=== PATIENT | female | born 1960 | race Caucasian/White ===

== ENCOUNTER 2018-12-16 14:25 | Inpatient (IN) | payer MEDICARE ==
[~2018-12-16] VITALS: Ht 157.5 cm; Wt 63.9 kg
[~2018-12-16 14:25] MED LIST: /CELE20CA; BISO2.5T PO; CALC12502; CALTTAB5 PO; CLIN150C14 PO; IBUP600T OR; LEVO100T7; LYRI75CA; PERC5TAB8 OR; PREG50CA; PROC10TA4 PO; SM I100T OR; SYNT100T PO; VITAMIN D; ZANA2CAP; ZANA4CAP; ZOFR8TAB24 PO
[2018-12-16] MEDS ORDERED: POTA1TAB23 PO (14:34)
[2018-12-16] MEDS ORDERED: NS 1,000 ML IV ONE ×2 (15:00→15:15)
[2018-12-16] MEDS ORDERED: ONDANSETRON 4MG/2ML VIAL (J2405) IV ONE (15:15)
[2018-12-16 15:35] LABS: EOS % 1.9 % (0.0-3.0); HEMOGLOBIN 8.4 g/dl (12.0-15.5); LYMPH # 0.4 10^3/uL (1.5-4.5); LYMPH % 36.5 % (24.0-44.0); MEAN CORPUSCULAR HEMOGLOBIN 31.3 pg (27.0-33.0); MEAN CORPUSCULAR HGB CONC 33.6 g/dl (32.0-36.5); MEAN CORPUSCULAR VOLUME 93.3 fl (80.0-96.0); MONO # 0.4 10^3/uL (0.0-0.8); MONO % 34.6 % (0.0-5.0); NEUTROPHILS % 24.1 % (36.0-66.0); PLATELET COUNT, AUTOMATED 123 10^3/uL (150-450); RED BLOOD COUNT 2.68 10^6/uL (4.00-5.40)
[2018-12-16 15:37] LABS: NEUTROPHILS # 0.3 10^3/uL (1.8-7.7)
[2018-12-16 16:06] LABS: ALBUMIN 3.9 GM/DL (3.2-5.2); ALT/SGPT 21 U/L (12-78); BILIRUBIN,DIRECT 0.1 MG/DL (0.0-0.2); BILIRUBIN,TOTAL 0.5 MG/DL (0.2-1.0); BLOOD UREA NITROGEN 11 MG/DL (7-18); CARBON DIOXIDE LEVEL 27 MEQ/L (21-32); CHLORIDE LEVEL 104 MEQ/L (98-107); CREATININE FOR GFR 0.78 MG/DL (0.55-1.30); GLOMERULAR FILTRATION RATE > 60.0 (>45); GLUCOSE, FASTING 90 MG/DL (70-100); LIPASE 48 U/L (73-393); POTASSIUM SERUM 3.7 MEQ/L (3.5-5.1); SODIUM LEVEL 138 MEQ/L (136-145); TOTAL PROTEIN 6.6 GM/DL (6.4-8.2)
--- NOTE | 2018-12-16 16:11 | REP ---
PORTABLE CHEST: AP portable view of the chest is performed. COMPARISON: 09/15/2013 There is no acute infiltrate. Cardiac silhouette is mildly prominent. The mediastinal silhouette is unremarkable. Left central venous catheter is seen with the tip in the superior vena cava. Electronically Signed by Inocencio Jolly MD 12/16/2018 11:42 P
[2018-12-16] MEDS ORDERED: SUCRALFATE SUSP 1GM/10ML UD PO ONE (17:00)
[2018-12-16] MEDS ORDERED: PROMETHAZINE INJ 25 MG/ML VIAL (J2550) IV ONE (17:00)
[2018-12-16] MEDS ORDERED: ISOVUE-370 76% 100ML VIAL (Q9967) As Ordered ONE (17:50)
[2018-12-16 17:53] LABS: CK-MB VALUE MASS < 1.0 NG/ML (<3.6); CPK CREATINE PHOSPHOKINASE 13 U/L (26-192); MB/CK RELATIVE INDEX 7.69 (< OR =4); TROPONIN I < 0.02 NG/ML (< 0.10)
[2018-12-16] MEDS ORDERED: FILGRASTIM 300 MCG/0.5 ML SYRINGE (J1442 PER 1MCG) SC ONE (18:00)
[2018-12-16] MEDS ORDERED: VITA100066 PO (18:51)
[2018-12-16] MEDS ORDERED: IMIPENEM/CILASTATIN 500 MG in D5W MINI-BAG PLUS 100 ML IV ONE (19:15)
--- NOTE | 2018-12-16 19:20 | REPVR ---
EXAM: CT Angiography Chest With Contrast EXAM DATE/TIME: 12/16/2018 6:43 PM CLINICAL HISTORY: 58 years old, female; Pain; Angina pectoris; Additional info: CA R/O pe TECHNIQUE: Axial computed tomographic angiography images of the chest with intravenous contrast using CT angiography protocol. All CT scans at this facility use at least one of these dose optimization techniques: automated exposure control; mA and/or kV adjustment per patient size (includes targeted exams where dose is matched to clinical indication); or iterative reconstruction. Coronal and sagittal reformatted images were created and reviewed. MIP reconstructed images were created and reviewed. CONTRAST: Contrast Material: 75 ml of iso 370; Contrast Route: iv COMPARISON: CR Chest, 1 view 12/16/2018 3:11 PM FINDINGS: Pulmonary arteries: No pulmonary embolus. Aorta: No aortic aneurysm or dissection. Lungs: There is bibasilar compressive atelectasis. Lungs otherwise clear. Pleural space: Normal. No pneumothorax. No pleural effusion. Heart: Normal. No cardiomegaly. No pericardial effusion. Lymph nodes: Unremarkable. No enlarged lymph nodes. Bones/joints: Status post rotator cuff repair right shoulder. The spine demonstrates mild degenerative changes. Soft tissues: Unremarkable. IMPRESSION: 1. No aortic aneurysm or dissection. 2. No pulmonary embolus. Centrally calcified lymph node in the right axilla measures 1.3 centimeters in diameter. Electronically signed by: Hever Jones On 12/16/2018 19:19:59 PM
[2018-12-16] MEDS ORDERED: ACETAMINOPHEN 325 MG TAB PO ONE (19:45)
[2018-12-16] MEDS ORDERED: ACETAMINOPHEN SUSP DYE FREE 160 MG/5 ML UDC As Ordered ONE (20:01)
[2018-12-16] MEDS ORDERED: ACETAMINOPHEN SUSP DYE FREE 160 MG/5 ML UDC PO ONE ×2 (20:15→20:30)
--- NOTE | 2018-12-16 20:44 | ECGEPIP ---
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
[2018-12-16] MEDS: NS 1,000 ML IV SCH (20:45)
[2018-12-16] MEDS: ONDANSETRON 4MG/2ML VIAL (J2405) IV PRN (21:30)
[2018-12-16] MEDS: SENOKOT S TAB PO SCH (23:27)
[2018-12-17] MEDS: CEFEPIME HCL 2 GM in D5W MINI-BAG PLUS 50 ML IV SCH ×3 (04:47→17:11)
[2018-12-17] MEDS: LEVOTHYROXINE 100MCG TABLET (0.1MG) PO SCH (06:00)
[2018-12-17] MEDS: NS 1,000 ML IV SCH ×3 (06:32→20:06)
[2018-12-17] MEDS: SENOKOT S TAB PO SCH ×2 (09:00→20:05)
[2018-12-17] MEDS: PANTOPRAZOLE 40MG TAB (PROTONIX) PO SCH (09:13)
[2018-12-17] MEDS: POTASSIUM CHLORIDE 10 MEQ SR TABLET PO SCH ×3 (09:13→15:38)
[2018-12-17] MEDS: ACETAMINOPHEN TAB 650MG DOSE (2X325MG) PO PRN ×2 (09:13→09:55)
[2018-12-17] MEDS: VITAMIN D 1,000 INTERNATIONAL UNITS TABLET PO SCH (09:14)
[2018-12-17 09:56] LABS: HEMATOCRIT 31.8 % (36.0-47.0); MEAN CORPUSCULAR HEMOGLOBIN 30.9 pg (27.0-33.0); MEAN CORPUSCULAR VOLUME 91.1 fl (80.0-96.0); PLATELET COUNT, AUTOMATED 101 10^3/uL (150-450); RED BLOOD COUNT 3.49 10^6/uL (4.00-5.40); WHITE BLOOD COUNT 3.6 10^3/uL (4.0-10.0)
[2018-12-17 09:57] LABS: BLOOD UREA NITROGEN 6 MG/DL (7-18); CALCIUM LEVEL 7.9 MG/DL (8.8-10.2); CARBON DIOXIDE LEVEL 24 MEQ/L (21-32); CHLORIDE LEVEL 108 MEQ/L (98-107); CREATININE FOR GFR 0.69 MG/DL (0.55-1.30); GLOMERULAR FILTRATION RATE > 60.0 (>45); GLUCOSE, FASTING 80 MG/DL (70-100); POTASSIUM SERUM 3.5 MEQ/L (3.5-5.1); SODIUM LEVEL 140 MEQ/L (136-145)
[2018-12-17 10:04] LABS: HEMOGLOBIN 10.8 g/dl (12.0-15.5)
[2018-12-17] MEDS: FILGRASTIM 300 MCG/0.5 ML SYRINGE (J1442 PER 1MCG) SC SCH (10:29)
[2018-12-17 10:36] LABS: BASOPHILS 1 % (0-4); LYMPHOCYTES 22 % (16-52); MONOCYTES 8 % (0-8); NEUTROPHILS 68 % (35-75)
[2018-12-17 10:37] LABS: PLATELET ESTIMATE NORMAL (NORMAL)
[2018-12-17 15:07] VITALS: BP 163/82
[2018-12-17] MEDS: ONDANSETRON 4MG/2ML VIAL (J2405) IV PRN (17:14)
[2018-12-17] MEDS ORDERED: tiZANidine 4 MG TAB PO ONE (19:00)
[2018-12-17] MEDS ORDERED: ANALGESIC BALM CRM 120 GM TOP PRN (19:00)
[2018-12-17] MEDS ORDERED: PILL CRUSHER/CUTTER 1 EACH XX PRN (19:15)
[2018-12-17 22:00] VITALS: BP 137/68
[2018-12-18] MEDS: CEFEPIME HCL 2 GM in D5W MINI-BAG PLUS 50 ML IV SCH ×3 (00:11→16:00)
[2018-12-18 01:30] VITALS: BP 140/72
[2018-12-18] MEDS: ONDANSETRON 4MG/2ML VIAL (J2405) IV PRN ×3 (02:04→15:59)
[2018-12-18] MEDS: ACETAMINOPHEN TAB 650MG DOSE (2X325MG) PO PRN (02:04)
[2018-12-18 06:00] VITALS: BP 122/69
[2018-12-18] MEDS: LEVOTHYROXINE 100MCG TABLET (0.1MG) PO SCH (06:08)
[2018-12-18 08:54] LABS: HEMATOCRIT 31.1 % (36.0-47.0); HEMOGLOBIN 10.8 g/dl (12.0-15.5); MEAN CORPUSCULAR HEMOGLOBIN 31.2 pg (27.0-33.0); MEAN CORPUSCULAR HGB CONC 34.7 g/dl (32.0-36.5); MEAN CORPUSCULAR VOLUME 89.9 fl (80.0-96.0); PLATELET COUNT, AUTOMATED 106 10^3/uL (150-450); RED BLOOD COUNT 3.46 10^6/uL (4.00-5.40)
[2018-12-18] MEDS: SENOKOT S TAB PO SCH ×2 (09:00→20:17)
[2018-12-18 09:17] LABS: BLOOD UREA NITROGEN 4 MG/DL (7-18); CARBON DIOXIDE LEVEL 23 MEQ/L (21-32); CHLORIDE LEVEL 107 MEQ/L (98-107); CREATININE FOR GFR 0.69 MG/DL (0.55-1.30); GLOMERULAR FILTRATION RATE > 60.0 (>45); GLUCOSE, FASTING 76 MG/DL (70-100); POTASSIUM SERUM 3.2 MEQ/L (3.5-5.1); SODIUM LEVEL 141 MEQ/L (136-145)
[2018-12-18] MEDS: PANTOPRAZOLE 40MG TAB (PROTONIX) PO SCH (09:36)
[2018-12-18] MEDS: VITAMIN D 1,000 INTERNATIONAL UNITS TABLET PO SCH (09:36)
[2018-12-18] MEDS: POTASSIUM CHLORIDE 10 MEQ SR TABLET PO SCH (09:36)
--- NOTE | 2018-12-18 09:39 | HPE ---
DATE OF ADMISSION: 12/16/2018 PRIMARY CARE PROVIDER: Dr. Gerber ONCOLOGIST: Dr. Polk ATTENDING PHYSICIAN: Dr. Valle CHIEF COMPLAINT: General weakness. HISTORY OF PRESENT ILLNESS: The patient is a 58-year-old white female with history of recent diagnoses with right-sided breast cancer on chemotherapy, came to the hospital with general sickness. The history provided by herself. The patient states last September she was found to have right-sided breast cancer. She was consulted with surgeon, as well as oncologist and decided to do chemotherapy first and then may go for the surgery. Currently, she is on chemotherapy, the last dose was given a week ago. She stated she was not feeling good, general weak and some chills, but no fever. Also, she had some pleuritic chest pain and decided to come to the hospital for further evaluation. In the emergency room (ER), she was found to have temperature at 100.6 and she is tachycardiac and her complete blood count (CBC) showed white count at 1 with neutrophils at 300 and IV hydration, as well as antibiotics were given in the emergency room (ER). Blood culture was drawn in the emergency room (ER) too. Medicine service called for admission. REVIEW OF SYSTEMS: low grade fever with some chills. No headache, blurred vision. No shortness of breath and pleuritic chest pain. No cough. No nausea, no vomiting. No abdominal pain . No diarrhea. No tingling, numbness, weakness in arms or lower extremities, but she does have some general weakness and all other system review was negative. PAST MEDICAL HISTORY: 1. Right breast cancer, diagnosed in September 2018, currently on chemotherapy. 2. Paroxysmal atrial fibrillation. 3. Vitamin D deficiency. 4. Grave's disease with hypothyroidism PAST SURGICAL HISTORY: Thyroidectomy, appendectomy, tonsillectomy, hysterectomy, diltation and curettage and hernia repair and cervical cancer status post surgery. Right hip replacement. ALLERGIES: She is allergic to PENICILLIN, VANCOMYCIN, CODEINE AND TRAMADOL. MEDICATIONS: Reviewed. SOCIAL HISTORY: Denies tobacco use. Denies alcohol abuse. Denies illicit drug abuse. She lives with at home. She is a full code. FAMILY HISTORY: No family member with cancer. PHYSICAL EXAMINATION: VITALS: Temperature 100.6, heart rate is 113. respirations 20, blood pressure 117/61, oxygen saturation 95% on room air. GENERAL: She is weak, alert, oriented times three. She is not in acute distress. HEENT: Atraumatic. Pupils equal, round and reactive to light. No jaundice. Extraocular muscles intact. She does not have hair loss due to the chemo. Ears and nose were normal. Mouth: Mucosa dry. NECK: No jugular venous distension (JVD), no bruits. LUNGS: Clear. No wheezes, no crackles. HEART: S1, S2, regular, mild tachycardia. No murmur. ABDOMEN: Soft. Bowel sounds positive. Nontender. LOWER EXTREMITIES: No edema in bilateral lower extremities. SKIN: No rash. PSYCHOLOGICAL: No psychosis. DIAGNOSTIC LAB STUDIES INCLUDE THE FOLLOWING: Complete blood count (CBC) and differential: White blood count (WBC) 1, hemoglobin and hematocrit 8./25, platelets 123. Sodium 130, potassium 3.7, chloride 104, bicarbonate 27, BUN 11, creatinine 0.7, glucose 90. Chest x-ray unremarkable. Blood cultures times two pending. IMPRESSION: 1. Neutropenia fever. 2. Pancytopenia due to chemotherapy. 3. Recent history of breast cancer on chemotherapy. 4. Proximal atrial fibrillation, currently sinus tachycardia. PLAN: The patient will be admitted to med-surg floor with cardiac monitoring. Will treat her supportively with IV hydration. Will cover her broad coverage with cefepime and followup blood cultures. Will give her Neupogen for leukopenia. In the emergency room (ER), scheduled for one packed red blood cell transfusion due to anemia. TABATHA
[2018-12-18 09:41] LABS: BASOPHILS 1 % (0-4); EOSINOPHILS 1 % (0-5); LYMPHOCYTES 19 % (16-52); MONOCYTES 8 % (0-8); NEUTROPHILS 58 % (35-75)
[2018-12-18 09:42] LABS: ANISOCYTOSIS 1+; PLATELET ESTIMATE DECREASED (NORMAL)
[2018-12-18 09:43] LABS: POIKILOCYTOSIS 1+; TEAR DROP CELLS 1+
[2018-12-18] MEDS: FILGRASTIM 300 MCG/0.5 ML SYRINGE (J1442 PER 1MCG) SC SCH (09:56)
[2018-12-18] MEDS ORDERED: POTASSIUM CHLORIDE 10 MEQ SR TABLET PO ONE (12:00)
[2018-12-18 14:00] VITALS: BP 124/68
[2018-12-18] MEDS: NS 1,000 ML IV SCH (14:42)
[2018-12-18] MEDS ORDERED: PROMETHAZINE INJ 25 MG/ML VIAL (J2550) IV ONE (15:00)
--- NOTE | 2018-12-18 20:41 | IPNPDOC ---
Subjective Date Seen The patient was seen on 12/17/18. Subjective Chief Complaint/HPI Sudden onset leg weakness, SOB, chest pain, could not walk. Events since last encounter Feels better this morning . Had low grade fever in the ED with t max of 100.6. No abdominal pain or diarrhea at home. here did have diarrhea after starting the antibiotics. No cough or phlegm or SOB. No chest pain or palpitation , no fever or chills at home. Objective Physical Examination General Exam: Positive: Alert, Cooperative, No Acute Distress Eye Exam: Positive: PERRLA, Conjunctiva & lids normal, EOMI; Negative: Sclera icteric ENT Exam: Positive: Atraumatic, Mucous membr. moist/pink, Pharynx Normal Neck Exam: Positive: Supple; Negative: JVD, thyromegaly Chest Exam: Positive: Clear to auscultation, Normal air movement Heart Exam: Positive: Rate Normal, Regular Rhythm, Normal S1, Normal S2; Negative: Murmurs, Rubs Telemetry: Positive: No significant arrhythmia Abdomen Exam: Positive: Normal bowel sounds, Soft; Negative: Tenderness, Hepatospenomegaly Extremity Exam: Positive: Normal pulses; Negative: Clubbing, Cyanosis, Edema Skin Exam: Positive: Nl turgor and temperature; Negative: Rash, Breakdown Neuro Exam: Positive: Normal Gait, Normal Speech, Cranial Nerves 3-12 NL, Reflexes 2+ Assessment /Plan Assessment The patient is a 58-year-old white female with history of recent diagnoses with right-sided breast cancer on chemotherapy, came to the hospital with general sickness. The history provided by herself. The patient states last September she was found to have right-sided breast cancer. She was consulted with surgeon, as well as oncologist and decided to do chemotherapy first and then may go for the surgery. Currently, she is on chemotherapy, the last dose was given a week ago. She stated she was not feeling good, general weak and some chills, but no fever. Also, she had some pleuritic chest pain and decided to come to the hospital for further evaluation. In the emergency room (ER), she was found to have temperature at 100.6 and she is tachycardiac and her complete blood count (CBC) showed white count at 1 with neutrophils at 300 and IV hydration, as well as antibiotics were given in the emergency room (ER). Blood culture was drawn in the emergency room (ER) too. Patient admitted for Neutropenic fever. Neutropenic Fever On cefepime and Neupogen ANC still less than 1000 continue IVF. cultures negative till date, UA clean Pancytopenia most prominently neutropenia chemotherapy related Last treatment on 12/07 Breast Cancer Screen detected clinical stage IIB, T2N1M0 right breast ER negative, ID positive, HER2 negative, grade 2 invasive ductal carcinoma diagnosed September 2018 now undergoing neoadjuvant chemotherapy transferring her medical oncology care temporarily to complete taxane treatment prior to surgery. Status post four cycles of dose dense AC complicated by neutropenic fever requiring dose reduction minimal response on restaging ultrasound. Planned for new regimen to be started in the next 1 to 2 weeks. Atrial fibrillation with implantable loop recorder from 12/2017 Migraine headaches. No no acute attacks. Graves disease s/p thyroidectomy in 1987 continue Synthroid Hypertension. well controlled at present will hold medications. Low back pain with muscle spasms will give K pad, bengay and a dose of tizanidine. Right arm injury with chronic incomplete function. h/o Cervical cancer s/p surgery in 2006 DVT prophylaxis has been ordered. Plan/VTE VTE Prophylaxis Ordered?: Yes VS, I&O, 24H, Fishbone Vital Signs/I&O Vital Signs Date Time Temp Pulse Resp B/P (MAP) Pulse Ox O2 Delivery O2 Flow Rate FiO2 12/17/18 12:00 102 18 119/69 (86) 94 Room Air 12/17/18 06:15 97.8 Laboratory Data 24H LABS Laboratory Tests 2 12/16/18 15:00: Anion Gap 7L, Glomerular Filtration Rate > 60.0, Lactic Acid Level 1.2, Calcium Level 9.0, Aspartate Amino Transf (AST/SGOT) 10, Alanine Aminotransferase (ALT/SGPT) 21, Alkaline Phosphatase 111, Total Bilirubin 0.5, Direct Bilirubin 0.1, Total Creatine Kinase 13L, Creatine Kinase MB < 1.0, Creatine Kinase MB Relative Index 7.69H, Troponin I < 0.02, Total Protein 6.6, Albumin 3.9, Albumin/Globulin Ratio 1.44, Lipase 48L 12/16/18 15:22: Immature Granulocyte % (Auto) 1.9, White Blood Count 1.0L, Red Blood Count 2.68L, Hemoglobin 8.4L, Hematocrit 25.0L, Mean Corpuscular Volume 93.3, Mean Corpuscular Hemoglobin 31.3, Mean Corpuscular Hemoglobin Concent 33.6, Red Cell Distribution Width 16.7H, Platelet Count 123L, Neutrophils (%) (Auto) 24.1L, Lymphocytes (%) (Auto) 36.5, Monocytes (%) (Auto) 34.6H, Eosinophils (%) (Auto) 1.9, Basophils (%) (Auto) 1.0, Neutrophils # (Auto) 0.3L, Lymphocytes # (Auto) 0.4L, Monocytes # (Auto) 0.4, Eosinophils # (Auto) 0.0, Basophils # (Auto) 0.0, Nucleated Red Blood Cells % (auto) 0.0 12/16/18 19:21: Urine Color YELLOW, Urine Appearance HAZY, Urine pH 8.0, Urine Specific [place] 1.041, Urine Protein NEGATIVE, Urine Glucose (UA) NEGATIVE, Urine Ketones NEGATIVE, Urine Blood 1+H, Urine Nitrite NEGATIVE, Urine Bilirubin NEGATIVE, Urine Urobilinogen 0.2, Urine Leukocyte Esterase NEGATIVE, Urine WBC (Auto) 2, Urine RBC (Auto) 5H, Urine Hyaline Casts (Auto) 0, Urine Bacteria (Auto) NEGATIVE, Urine Squamous Epithelial Cells 1, Urine Amorphous Sediment SMALLH, U rine Sperm (Auto) 12/17/18 06:00: Anion Gap 8, Glomerular Filtration Rate > 60.0, Calcium Level 7.9L, Blood Urea Nitrogen 6L, Creatinine 0.69, Sodium Level 140, Potassium Level 3.5, Chloride Level 108H, Carbon Dioxide Level 24 12/17/18 08:24: Immature Granulocyte % (Auto) , Nucleated Red Blood Cells % (auto) 1.7H, Neutrophils 68, Band Neutrophils 1, Lymphocytes (Manual) 22, Monocytes (Manual) 8, Basophils (Manual) 1, Platelet Estimate NORMAL, Red Blood Cell Morphology NORMAL CBC/BMP Laboratory Tests 12/16/18 15:00 12/16/18 15:22 Red Blood Count 2.68 L, Mean Corpuscular Volume 93.3, Mean Corpuscular Hemoglobin 31.3, Mean Corpuscular Hemoglobin Concent 33.6, Red Cell Distribution Width 16.7 H, Neutrophils (%) (Auto) 24.1 L, Lymphocytes (%) (Auto) 36.5, Monocytes (%) (Auto) 34.6 H, Eosinophils (%) (Auto) 1.9, Basophils (%) (Auto) 1.0, Neutrophils # (Auto) 0.3 L, Lymphocytes # (Auto) 0.4 L, Monocytes # (Auto) 0.4, Eosinophils # (Auto) 0.0, Basophils # (Auto) 0.0 12/17/18 06:00 Calcium Level 7.9 L 12/17/18 08:24 Red Blood Count 3.49 L, Mean Corpuscular Volume 91.1, Mean Corpuscular Hemoglobin 30.9, Mean Corpuscular Hemoglobin Concent 34.0, Red Cell Distribution Width 16.7 H Microbiology Microbiology 12/16/18 Blood Culture, Received Pending 12/16/18 Blood Culture, Received Pending ARGENTINA YEPEZ MD Dec 17, 2018 14:26
[2018-12-18 22:00] VITALS: BP 122/68
--- NOTE | 2018-12-18 23:48 | IPNPDOC ---
Subjective Date Seen The patient was seen on 12/18/18. Subjective Chief Complaint/HPI weakness, chest pain , SOB Events since last encounter Patient again had a low grade fever of 100.8 last night. Otherwise no complaints. Still feeling generally weak which she says is not unusual. Also continues to have intermittent nausea. Objective Physical Examination General Exam: Positive: Alert, Cooperative, No Acute Distress Eye Exam: Positive: PERRLA, Conjunctiva & lids normal, EOMI; Negative: Sclera icteric ENT Exam: Positive: Atraumatic, Mucous membr. moist/pink, Pharynx Normal Neck Exam: Positive: Supple; Negative: JVD, thyromegaly Chest Exam: Positive: Clear to auscultation, Normal air movement Heart Exam: Positive: Rate Normal, Regular Rhythm, Normal S1, Normal S2; Negative: Murmurs, Rubs Telemetry: Positive: No significant arrhythmia Abdomen Exam: Positive: Normal bowel sounds, Soft; Negative: Tenderness, Hepatospenomegaly Extremity Exam: Positive: Normal pulses; Negative: Clubbing, Cyanosis, Edema Skin Exam: Positive: Nl turgor and temperature; Negative: Rash, Breakdown Neuro Exam: Positive: Normal Gait, Normal Speech, Cranial Nerves 3-12 NL, Reflexes 2+ Assessment /Plan Assessment The patient is a 58-year-old white female with history of recent diagnoses with right-sided breast cancer on chemotherapy, came to the hospital with general sickness. The history provided by herself. The patient states last September she was found to have right-sided breast cancer. She was consulted with surgeon, as well as oncologist and decided to do chemotherapy first and then may go for the surgery. Currently, she is on chemotherapy, the last dose was given a week ago. She stated she was not feeling good, general weak and some chills, but no fever. Also, she had some pleuritic chest pain and decided to come to the hospital for further evaluation. In the emergency room (ER), she was found to have temperature at 100.6 and she is tachycardiac and her complete blood count (CBC) showed white count at 1 with neutrophils at 300 and IV hydration, as well as antibiotics were given in the emergency room (ER). Blood culture was drawn in the emergency room (ER) too. Patient admitted for Neutropenic fever. Neutropenic Fever On cefepime and Neupogen ANC has improved willl stop Neupogen. continue IVF. cultures negative till date, UA clean Pancytopenia most prominently neutropenia chemotherapy related Last treatment on 12/07 Breast Cancer Screen detected clinical stage IIB, T2N1M0 right breast ER negative, [place] positive, HER2 negative, grade 2 invasive ductal carcinoma diagnosed September 2018 now undergoing neoadjuvant chemotherapy transferring her medical oncology care temporarily to complete taxane treatment prior to surgery. Status post four cycles of dose dense AC complicated by neutropenic fever requiring dose reduction minimal response on restaging ultrasound. Planned for new regimen to be started in the next 1 to 2 weeks. Atrial fibrillation with implantable loop recorder from 12/2017 Migraine headaches. No no acute attacks. Graves disease s/p thyroidectomy in 1987 continue Synthroid Hypertension. well controlled at present will hold medications. Low back pain with muscle spasms will give K pad, bengay and a dose of tizanidine. Right arm injury with chronic incomplete function. h/o Cervical cancer s/p surgery in 2006 DVT prophylaxis has been ordered. Plan/VTE VTE Prophylaxis Ordered?: Yes VS, I&O, 24H, Fishbone Vital Signs/I&O Vital Signs Date Time Temp Pulse Resp B/P (MAP) Pulse Ox O2 Delivery O2 Flow Rate FiO2 12/18/18 22:00 98.1 70 15 122/68 (86) 97 12/17/18 15:00 Room Air I&O- Last 24 Hours up to 6 AM 12/18/18 06:00 Intake Total 3060 ml Output Total 700 ml Balance 2360 ml Laboratory Data 24H LABS Laboratory Tests 2 12/18/18 08:40: Immature Granulocyte % (Auto) , Nucleated Red Blood Cells % (auto) 0.6H, Neutrophils 58, Band Neutrophils 13H, Lymphocytes (Manual) 19, Monocytes (Manual) 8, Eosinophils (Manual) 1, Basophils (Manual) 1, Platelet Estimate DECREASED, Poikilocytosis 1+, Anisocytosis 1+, Tear Drop Cells 1+, Anion Gap 11, Glomerular Filtration Rate > 60.0, Blood Urea Nitrogen 4L, Creatinine 0.69, Sodium Level 141, Potassium Level 3.2L, Chloride Level 107, Carbon Dioxide Level 23, Calcium Level 8.0L CBC/BMP Laboratory Tests 12/18/18 08:40 Red Blood Count 3.46 L, Mean Corpuscular Volume 89.9, Mean Corpuscular Hemoglobin 31.2, Mean Corpuscular Hemoglobin Concent 34.7, Red Cell Distribution Width 17.8 H, Calcium Level 8.0 L Microbiology Microbiology 12/16/18 Blood Culture - Preliminary, Resulted No Growth after 48 hours. All Specime... 12/16/18 Blood Culture - Preliminary, Resulted No Growth after 48 hours. All Specime... ARGENTINA YEPEZ MD Dec 18, 2018 23:48
[2018-12-19] MEDS: NS 1,000 ML IV SCH ×2 (00:33→08:09)
[2018-12-19] MEDS: CEFEPIME HCL 2 GM in D5W MINI-BAG PLUS 50 ML IV SCH ×2 (00:34→08:07)
[2018-12-19] MEDS: LEVOTHYROXINE 100MCG TABLET (0.1MG) PO SCH (05:19)
[2018-12-19 06:00] VITALS: BP 120/56
[2018-12-19] MEDS: VITAMIN D 1,000 INTERNATIONAL UNITS TABLET PO SCH (08:06)
[2018-12-19] MEDS: PANTOPRAZOLE 40MG TAB (PROTONIX) PO SCH (08:06)
[2018-12-19] MEDS: SENOKOT S TAB PO SCH ×2 (08:10→09:49)
[2018-12-19] MEDS: ONDANSETRON 4MG/2ML VIAL (J2405) IV PRN (09:49)
[2018-12-19 11:22] LABS: HEMATOCRIT 34.5 % (36.0-47.0); HEMOGLOBIN 11.5 g/dl (12.0-15.5); MEAN CORPUSCULAR HEMOGLOBIN 30.6 pg (27.0-33.0); MEAN CORPUSCULAR HGB CONC 33.3 g/dl (32.0-36.5); MEAN CORPUSCULAR VOLUME 91.8 fl (80.0-96.0); PLATELET COUNT, AUTOMATED 118 10^3/uL (150-450); RED BLOOD COUNT 3.76 10^6/uL (4.00-5.40); WHITE BLOOD COUNT 25.8 10^3/uL (4.0-10.0)
--- NOTE | 2018-12-19 11:42 | DSES ---
DATE OF ADMISSION: 12/16/2018 DATE OF DISCHARGE: PRINCIPAL DIAGNOSIS: Neutropenic fever secondary to chemotherapy. SECONDARY DIAGNOSES: Stage IIB, T2N1M1, right breast cancer. Atrial fibrillation. Migraine headaches. Graves disease, status post thyroidectomy with postoperative hypothyroidism. Hypertensive heart disease. Low back pain with spasms. 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 Details in history and physical from admission. HOSPITAL COURSE: She was admitted medical bed. She was placed on cefepime. She received Neupogen on 12/17/2018 and 12/18/2018. Her white count improved. White count was 1 with an ANC of 240 on admission. Her white count was 3.6 the next day. Yesterday, it was 12,000 with 70% neutrophils or bands. Unfortunately, she did not have any labs ordered for today, so her discharge is being held until we get lab work done. She had low-grade fever 100.8 on the evening of 12/17/2018, but she has been afebrile for the last 36 hours. She feels well without cough, fever, chills, shortness of breath, or urinary symptoms. PHYSICAL EXAM: Afebrile. Vital signs stable. LUNGS: Clear. HEART: Regular rate and rhythm. ABDOMEN: Soft. Nontender. No peripheral edema. LABS: Unfortunately, no labs ordered for today. Assuming her ANC is adequate and her potassium has recovered, I will discharge her home to followup with her oncologist and primary care provider in a week. Her activity and diet are as tolerated. Her medicines will continue to be: - bisoprolol hydrochlorothiazide 2.5/ 6.25 daily - calcium carbonate 1500 mg daily - vitamin D 1000 units daily - levothyroxine 100 mcg daily - Zofran 8 mg three times a day as needed - potassium chloride 10 mEq daily - prochlorperazine 10 mg every 6 hours as needed for nausea or vomiting She is to report any fever, cough, chills, shortness of breath, urinary symptoms, or cellulitic rashes. This discharge plan is all pending labs, which I just ordered stat.
[2018-12-19 11:54] LABS: BLOOD UREA NITROGEN 5 MG/DL (7-18); CALCIUM LEVEL 7.7 MG/DL (8.8-10.2); CARBON DIOXIDE LEVEL 25 MEQ/L (21-32); CHLORIDE LEVEL 107 MEQ/L (98-107); CREATININE FOR GFR 0.79 MG/DL (0.55-1.30); GLOMERULAR FILTRATION RATE > 60.0 (>45); GLUCOSE, FASTING 83 MG/DL (70-100); POTASSIUM SERUM 3.4 MEQ/L (3.5-5.1); SODIUM LEVEL 141 MEQ/L (136-145)
[2018-12-19 11:58] LABS: LYMPHOCYTES 10 % (16-52); MONOCYTES 5 % (0-8); NEUTROPHILS 76 % (35-75); PLATELET ESTIMATE DECREASED (NORMAL)
[2018-12-19 11:59] LABS: ANISOCYTOSIS 1+; POLYCHROMASIA 1+
[2018-12-19] MEDS ORDERED: POTASSIUM CHLORIDE 10 MEQ SR TABLET PO ONE (13:00)
== END 2018-12-19 15:24 | disposition home or self-care (01) | DRG 810 ==
LOC: M ED 14:25 → M ED INP 20:45 → M MSPAV 12-17 15:06
PROVIDERS: ADMIT Hospitalist; ATTEND Family Medicine
DX: D70.1 Agranulocytosis secondary to cancer chemotherapy (principal); C50.911 Malignant neoplasm of unspecified site of right female breast; I48.0 Paroxysmal atrial fibrillation; G43.909 Migraine, unspecified, not intractable, without status migrainosus; I11.9 Hypertensive heart disease without heart failure; M54.5 Low back pain; E89.0 Postprocedural hypothyroidism; T45.1X5A Adverse effect of antineoplastic and immunosuppressive drugs, initial encounter; Z79.899 Other long term (current) drug therapy; E55.9 Vitamin D deficiency, unspecified; Z88.0 Allergy status to penicillin; Z88.1 Allergy status to other antibiotic agents; Z88.5 Allergy status to narcotic agent; Z88.8 Allergy status to other drugs, medicaments and biological substances; Z85.41 Personal history of malignant neoplasm of cervix uteri

== ENCOUNTER 2019-01-21 19:59 | Emergency (ER) | payer MEDICARE ==
[~2019-01-21] VITALS: Ht 157.5 cm; Wt 60.0 kg
[~2019-01-21 19:59] MED LIST changes: -/CELE20CA; +CELE1CAP4; +LIDO2.5C15 TOP; +POTA1TAB23 PO; +VITA100066 PO
[2019-01-21] MEDS ORDERED: PROBCAP14 PO (20:14)
[2019-01-21] MEDS ORDERED: PEPE50CA PO (20:14)
[2019-01-21] MEDS ORDERED: K-TA10TA2 PO (20:14)
[2019-01-21 20:55] LABS: BASO % 0.3 % (0.0-1.0); EOS # 0.5 10^3/uL (0.0-0.50); EOS % 17.5 % (0.0-3.0); HEMATOCRIT 31.3 % (36.0-47.0); HEMOGLOBIN 10.5 g/dl (12.0-15.5); LYMPH # 0.6 10^3/uL (1.5-4.5); LYMPH % 18.9 % (24.0-44.0); MEAN CORPUSCULAR HEMOGLOBIN 32.6 pg (27.0-33.0); MEAN CORPUSCULAR HGB CONC 33.5 g/dl (32.0-36.5); MEAN CORPUSCULAR VOLUME 97.2 fl (80.0-96.0); MONO # 0.2 10^3/uL (0.0-0.8); MONO % 5.8 % (0.0-5.0); NEUTROPHILS # 1.7 10^3/uL (1.8-7.7); NEUTROPHILS % 57.2 % (36.0-66.0); PLATELET COUNT, AUTOMATED 218 10^3/uL (150-450); RED BLOOD COUNT 3.22 10^6/uL (4.00-5.40); WHITE BLOOD COUNT 2.9 10^3/uL (4.0-10.0)
[2019-01-21 21:05] LABS: ABG BASE EXCESS -1.8 (-2.0-2.0); ABG HCO3 20.9 MEQ/L (22.0-26.0); ABG O2 SATURATION 97.9 % (95.0-99.0); ABG PARTIAL PRESSURE CO2 28.9 mmHg (35.0-45.0); ABG PARTIAL PRESSURE O2 106.7 mmHg (75.0-100.0); ABG TOTAL CO2 21.8 MEQ/L (23.0-31.0); ABG pH (ARTERIAL) 7.477 UNITS (7.350-7.450)
[2019-01-21 21:18] LABS: ALBUMIN 4.2 GM/DL (3.2-5.2); ALT/SGPT 25 U/L (12-78); BILIRUBIN,DIRECT 0.1 MG/DL (0.0-0.2); BILIRUBIN,TOTAL 0.6 MG/DL (0.2-1.0); BLOOD UREA NITROGEN 14 MG/DL (7-18); CALCIUM LEVEL 9.1 MG/DL (8.8-10.2); CARBON DIOXIDE LEVEL 24 MEQ/L (21-32); CHLORIDE LEVEL 108 MEQ/L (98-107); CK-MB VALUE MASS < 1.0 NG/ML (<3.6); CPK CREATINE PHOSPHOKINASE 34 U/L (26-192); CREATININE FOR GFR 0.98 MG/DL (0.55-1.30); GLOMERULAR FILTRATION RATE > 60.0 (>45); GLUCOSE, FASTING 101 MG/DL (70-100); MB/CK RELATIVE INDEX 2.94 (< OR =4); NT-PRO BNP 171 PG/ML (<125); SODIUM LEVEL 141 MEQ/L (136-145); TOTAL PROTEIN 6.9 GM/DL (6.4-8.2); TROPONIN I 0.02 NG/ML (< 0.10)
[2019-01-21] MEDS ORDERED: NS 1,000 ML IV ONE ×2 (21:30→23:00)
[2019-01-21 22:46] VITALS: O2SAT 100
[2019-01-21 23:39] VITALS: BP 131/76
--- NOTE | 2019-01-22 07:26 | REP ---
PA and lateral chest, 08:50 p.m.,. Comparisons are 12/16/2018 and 09/15/2013. There is a left IJ central venous [id number], unchanged from 12/16/2018. There is a loop recorder, unchanged from 12/16/2018. The lung aceves are clear. Cardiac size is normal. The marcus, mediastinum, and skeletal structures are unremarkable. Impression: There are no acute cardiopulmonary findings. Electronically Signed by Inocencio Cortez MD 01/22/2019 07:18 A
--- NOTE | 2019-01-22 21:48 | ECGEPIP ---
Stationary ECG Study [facility] - ED Test Date: 2019-01-21 Pat Name: IVY LEONARD Department: Room: - Gender: F [employer] Helper: gt : 1960 Requested By: JAMIA GAMING Order Number: [id number] Reading MD: Amber Jasso Measurements Intervals [place] Rate: 103 P: 29 NH: 143 QRS: -8 QRSD: 88 T: -1 QT: 367 QTc: 481 Interpretive Statements SINUS TACHYCARDIA PROBABLE INFERIOR MYOCARDIAL INFARCTION, PROBABLY OLD WITH POSTERIOR EXTENSION NSTTW ABNORMALITY DECREASED RATE 12/16/18 Electronically Signed On 01-22-2019 21:48:25 EDT by Amber Jasso
[2019-01-26] MEDS ORDERED: CALC600T3 PO (08:02)
== END 2019-01-21 23:48 | disposition home or self-care (01) ==
LOC: M ED 19:59
DX: R00.0 Tachycardia, unspecified (principal); D72.819 Decreased white blood cell count, unspecified; R04.0 Epistaxis; I48.91 Unspecified atrial fibrillation; I10 Essential (primary) hypertension; J45.909 Unspecified asthma, uncomplicated; G43.909 Migraine, unspecified, not intractable, without status migrainosus; C50.019 Malignant neoplasm of nipple and areola, unspecified female breast; E55.9 Vitamin D deficiency, unspecified; Z88.0 Allergy status to penicillin; Z88.5 Allergy status to narcotic agent; Z88.6 Allergy status to analgesic agent; Z88.1 Allergy status to other antibiotic agents; Z79.899 Other long term (current) drug therapy

== ENCOUNTER 2019-05-04 09:36 | Outpatient (RCR) | payer MEDICARE ==
[~2019-05-04 09:36] MED LIST changes: +CALC600T3 PO; +K-TA10TA2 PO; +LOMO2.5T PO; +PEPE50CA PO; +PRED20TA PO; +PROBCAP14 PO; +TRIA1CR80 TOP
== END 2019-05-12 ==
LOC: M PT 09:36
PROVIDERS: ATTEND Surgery
DX: Z51.89 Encounter for other specified aftercare (principal); C50.411 Malignant neoplasm of upper-outer quadrant of right female breast; Z17.1 Estrogen receptor negative status [ER-]

== ENCOUNTER → 2019-05-06 | Outpatient (CLI) | payer MEDICARE ==
--- NOTE | 2019-05-10 09:18 | RADONC ---
RADIATION ONCOLOGY CONSULTATION NOTE DATE: 05/06/2019 CHART #: [id number] DIAGNOSIS: Right breast cancer. STAGE: yIIA, ypT1b, N1a, M0, ER negative, KS positive, HER2/luis negative, grade 2. ECOG PERFORMANCE STATUS: 0. CONSULTATION NOTE: Ms. Casper is a very pleasant 58-year-old white female with the diagnosis of what appears to be a is a stage yIIA, ypT1b, N1a, MX, moderately differentiated invasive ductal carcinoma of the right breast which is ER negative, KS positive, and HER2 negative who is presenting to us today status post neoadjuvant chemotherapy followed by right partial mastectomy and sentinel lymph node and axillary dissection for consideration of postoperative radiation therapy in an attempt to increase the likelihood of achieving local control and cure. HISTORY OF PRESENT ILLNESS: The patient was in her usual state of health until 09/09/2018 when a screening mammography was done and she was found to have an upper outer quadrant breast mass. The mass measured approximately 2.6 cm. Mammogram also revealed two right axillary lymph nodes. Biopsy was undertaken and a moderately differentiated invasive ductal carcinoma was seen. The tumor was estrogen receptor negative, progesterone receptor 10% positive and HER2/luis negative. Subsequent CT scans of the chest, abdomen and pelvis as well as bone scan were done for staging all were negative for metastatic disease. The patient was treated with dose dense AC chemotherapy from 10/19/2018 through 12/07/2018. She then had weekly paclitaxel 6 weeks from 12/29/2018 through 02/03/2019. Following this, she was treated with paclitaxel/carboplatin weekly for 6 weeks from 02/09/2019 through 03/16/2019. The patient subsequently underwent a right partial mastectomy, sentinel lymph node biopsy and axillary dissection. Pathology revealed residual disease measuring 7 mm x 2 mm and a subsequent second site measuring 2 mm x 2 mm. In addition, a total of two sentinel lymph nodes were sampled and four other axillary lymph nodes. Metastatic carcinoma was noted in three with macro metastasis greater than 2 mm and two lymph nodes with isolated tumor cells. The largest metastatic deposit was 8 mm. Extranodal extension was present. It was noted that the total number of lymph nodes sampled were actually twelve, two of which were sentinel lymph nodes. The tumor was therefore staged as ypT1b, pN1a. She has done well since surgery and is now presenting for discussion of postoperative radiation therapy. PAST MEDICAL HISTORY: The patient's past medical history is positive for history of atrial fibrillation and Graves' disease. She also has a history of asthma as a child and reports having had cervical cancer. She has had cataracts as well as migraine headaches. She reports a history of hypertension and low back pain. PAST SURGICAL HISTORY: The patient has had hernia repair as well as hip surgery and a hysterectomy. She had lid recession surgery. She has had shoulder surgery in the past as well as a tonsillectomy, total thyroidectomy, tubal ligation and cervical cancer surgery. She had an appendectomy as well. ALLERGIES: - IBUPROFEN - TRAMADOL - VANCOMYCIN - ACETAMINOPHEN/CODEINE - ADHESIVE TAPE - PENICILLINS SOCIAL HISTORY: The patient does not smoke cigarettes nor abuse alcohol. FAMILY HISTORY: The patient's family history is negative for breast cancer or other malignancies. REVIEW OF SYSTEMS: The patient's review of systems is noncontributory. Denies nausea, vomiting, fevers, chills, night sweats, diplopia, headaches, anxiety or depression, anorexia, weight loss, visual disturbances, chest pain, urinary or bowel difficulties, bone pain, or neurological problems. PHYSICAL EXAMINATION: The patient is a well-developed, well-nourished, 58-year-old male in no acute distress. HEENT exam is normocephalic, atraumatic. Extraocular movements are intact. There is no palpable cervical, supraclavicular, infraclavicular, axillary, or inguinal lymphadenopathy present. Lungs are clear to auscultation and percussion. Heart has a regular rate and rhythm. Abdomen is benign with no hepatosplenomegaly, masses, or tenderness. Breast examination reveals no masses or discharge bilaterally. Skeletal examination reveals no tenderness to pressure or percussion of the bony skeleton. Extremities reveal no clubbing, cyanosis, or edema. Neurologic exam is grossly intact, as is the remainder of the physical examination. ASSESSMENT: Clearly, the patient is a candidate for external beam radiation therapy and I have so informed her. I have discussed with the patient in detail the potential benefits as well as possible acute and chronic sequelae of external beam radiation therapy. We discussed logistics of treatment planning, simulation and subsequent fractionated daily radiation treatments. I have scheduled the patient for the next available simulation slot and radiation treatments will begin subsequently. Thank you for allowing us to participate in the care of this very pleasant woman. If I could be of any further assistance or provide you with any information, please feel free to contact me at anytime. As always warm regards. cc: MD Freda Patel MD Lisa M. Lai, MD Abirami Sivapiragasam, MD MTDD
== END ==
LOC: M ONCR 09:43
PROVIDERS: ATTEND Radiology Radiation Oncology
DX: C50.411 Malignant neoplasm of upper-outer quadrant of right female breast (principal)

== ENCOUNTER → 2019-05-12 | Outpatient (RCR) | payer MEDICARE ==
[~2019-05-12] MED LIST changes: +CAPE1TAB2 PO
--- NOTE | 2019-05-13 08:40 | RADONC ---
RADIATION ONCOLOGY SIMULATION NOTE DATE: 05/12/2019 CHART NUMBER: [id number] Ms. Casper was taken to the CT scan for CT simulation of her right breast and lymph node drainage site field. CT was accomplished without difficulty or discomfort. Radiation treatment planning is underway and radiation treatments will begin subsequently. An immobilization device was created without difficulty or discomfort. It will be used throughout the course of treatment. I was physically present throughout the course of CT simulation.
== END ==
LOC: M ONCR 13:39
PROVIDERS: ATTEND Radiology Radiation Oncology
DX: C50.411 Malignant neoplasm of upper-outer quadrant of right female breast (principal)

== ENCOUNTER 2019-06-11 10:01 | Outpatient (RCR) | payer MEDICARE ==
--- NOTE | 2019-05-26 09:16 | RADONC ---
RADIATION ONCOLOGY PROGRESS NOTE DATE: 05/24/2019 CHART NUMBER: [id number] Mrs. Mesha Casper, with a diagnosis of right breast cancer, is currently receiving adjuvant local regional radiotherapy. Her current dose is 900 centigray of an anticipated 4860 centigray to the chest wall and peripheral lymphatics to be followed by a scar boost. She is tolerating her radiotherapy very well at this stage. She has no complaints referable to her disease or to her treatments. REVIEW OF SYSTEMS: She specifically denies any nausea, vomiting, coughing, sputum production or hemoptysis. Her energy level is such that she is able to maintain most of her day-to-day activities without any alteration of her lifestyle. Skin irritation is not noticeable yet at this fairly early stage of her treatments. She also feels overall healthy and fairly energetic. The remainder of the review of systems is unchanged. Examination findings: The skin within the irradiated volume shows neither erythema nor desquamation. Lymphatics no palpable peripheral lymphadenopathy is appreciated. Lungs are clear. The remainder of the physical examination is unchanged. IMPRESSION: Tolerating therapy well. PLAN: Treatments to continue.
--- NOTE | 2019-06-02 14:33 | RADONC ---
RADIATION ONCOLOGY PROGRESS NOTE DATE: 05/31/2019 CHART NUMBER: [id number] PROGRESS NOTE: Ms. Casper is presently at a dose of 1800 cGy to her right breast and is tolerating treatments quite well at this point with no complaints related to her radiation therapy. She has no breast or bone pain. REVIEW OF SYSTEMS: The patient's review of systems is noncontributory. Denies nausea, vomiting, fevers, chills, night sweats, diplopia, headaches, anxiety or depression, anorexia, weight loss, visual disturbances, chest pain, urinary or bowel difficulties, bone pain, or neurological problems. PHYSICAL EXAMINATION: The patient's skin is in good condition with no evidence of moist or dry desquamation. The remainder of her physical exam remains unchanged as well. Ms. Casper is tolerating treatments quite well and radiation will continue as scheduled.
--- NOTE | 2019-06-09 06:37 | RADONC ---
RADIATION ONCOLOGY PROGRESS NOTE DATE: 06/07/2019 CHART #: [id number] Ms. Casper is presently at a dose of 2700 cGy to her right breast and is tolerating treatments quite well at this point with no significant difficulties related to her radiation therapy. She is having no breast or bone pain. REVIEW OF SYSTEMS: The patient's review of systems is noncontributory. Denies nausea, vomiting, fevers, chills, night sweats, diplopia, headaches, anxiety or depression, anorexia, weight loss, visual disturbances, chest pain, urinary or bowel difficulties, bone pain, or neurological problems. PHYSICAL EXAMINATION: The patient's skin is in good condition with no evidence of moist or dry desquamation. The remainder of her physical exam remains unchanged. Ms. Casper is tolerating treatments quite well and radiation will continue as scheduled.
[~2019-06-11 10:01] MED LIST changes: -CAPE1TAB2 PO
== END 2019-06-12 ==
LOC: M ONCR 10:01
PROVIDERS: ATTEND Radiology Radiation Oncology
DX: C50.911 Malignant neoplasm of unspecified site of right female breast (principal)

== ENCOUNTER 2019-07-02 09:54 | Outpatient (RCR) | payer MEDICARE ==
--- NOTE | 2019-06-16 08:25 | RADONC ---
RADIATION ONCOLOGY PROGRESS NOTE DATE: 06/15/2019 CHART NUMBER: [id number] PROGRESS NOTE: Mrs. Casper is currently receiving local regional radiotherapy to the right breast and is tolerating her radiotherapy quite well. She is currently at a dose of 3600 cGy of an initial 4860 cGy to be followed by a boost to the lumpectomy scar site. Thus far, she appears to be tolerating her therapy quite well with no significant untoward side effects. REVIEW OF SYSTEMS: Her energy is such that she is able to maintain most day-to-day activities without any alteration of her lifestyle and she reports only minimal skin erythema with no focal desquamation. She has no other complaints referable to her disease or to her treatments. EXAMINATION FINDINGS: Skin within the irradiated volume shows only a minimal erythematous blush without focal desquamation. There is no palpable peripheral lymphadenopathy. The remainder of the physical examination is unchanged. IMPRESSION: Tolerating therapy well. PLAN: Treatments to continue. MTDD
--- NOTE | 2019-06-17 09:23 | RADONC ---
RADIATION ONCOLOGY SIMULATION NOTE DATE: 06/16/2019 CHART NUMBER: [id number] SIMULATION NOTE: Mrs. Casper was placed in a supine position in an immobilization device and careful planning was performed to boost her area of lumpectomy involving the right breast. An adequate margin was drawn around the lumpectomy scar site and she will be boosted with a chosen energetic electron beam for an additional dosage to bring the lumpectomy site up to the intended dose. I was present during the entire simulation process and the patient tolerated her simulation quite well with no significant untoward side effects. Treatment planning will proceed with regards to the boost for her electron beam set up and she will begin treatments thereafter.
--- NOTE | 2019-06-21 11:27 | RADONC ---
RADIATION ONCOLOGY PROGRESS NOTE: DATE: 06/21/2019 CHART NUMBER: [id number] Mrs Casper with the diagnosis of breast cancer is currently receiving adjuvant local regional radiotherapy and her dose to date is 4320 cGy of a proposed 4860 cGy with a boost planned in the future. She is tolerating her radiotherapy well with the exception of skin irritation and because of the skin irritation, we have taken the liberty of calling in a prescription for Silvadene cream. She was instructed to apply that twice daily. She denies any nausea, vomiting, coughing, sputum production or hemoptysis. The remainder of the review of systems is unchanged. PHYSICAL EXAMINATION: The skin within the irradiated volume shows a brisk erythematous blush without desquamation. There is no palpable peripheral lymphadenopathy. Lungs are clear. The remainder of the physical examination is unchanged. IMPRESSION: Tolerating therapy well. PLAN: Treatments to continue.
--- NOTE | 2019-06-30 12:52 | RADONC ---
RADIATION ONCOLOGY PROGRESS NOTE DATE OF SERVICE: 06/28/2019 CHART NUMBER: [id number]. PROGRESS NOTE: Ms. Casper is presently at a dose of 5260 cGy to her right breast primary site and is tolerating treatments quite well at this point with no significant difficulties related to her radiation therapy. The skin over the primary site is in good condition with no evidence of moist or dry desquamation. The remainder of her skin is no longer being treated, and she is receiving Silvadene for a brisk erythema. The remainder of her physical exam is unchanged. Ms. Casper is tolerating treatments quite well, and radiation will continue as scheduled.
--- NOTE | 2019-07-05 14:34 | RADONC ---
RADIATION ONCOLOGY TREATMENT SUMMARY DATE: 07/02/2019 CHART NUMBER: [id number] DIAGNOSIS: Right breast cancer. STAGE: yIIA, ypT1b, N1a, M0, ER negative, ID positive, HER2 negative, grade 2. ECOG PERFORMANCE STATUS: 0 TREATMENT SUMMARY: Ms. Casper is a very pleasant 58-year-old white female with the diagnosis of what appears to be at least a stage yIIA, ypT1b, N1a, M0 moderately differentiated invasive ductal carcinoma of the right breast which is ER negative, ID positive and HER2 negative who presented to us status post neoadjuvant chemotherapy followed by right partial mastectomy and sentinel lymph node biopsy as well as axillary dissection for consideration of postoperative radiation therapy in an attempt to increase the likelihood of achieving local control. We treated the patient to the right breast for a total dose of 4860 cGy delivered in 27 fractions of 180 cGy each over 37 elapsed days from 05/18/2019 through 06/24/2019. The patient's right breast was treated on a linear accelerator utilizing a 3D conformal technique with 6 MV photon beam. Following completion of 4860 cGy to the entire right breast, the primary site was boosted for an additional 1200 cGy delivered in six fractions of 200 cGy each from 06/25/2019 through 07/02/2019. The primary site boost was treated on a linear accelerator utilizing a 12 MeV electron beam prescribed to the 90% isodose line via an en face technique. This brought the primary site to a total dose of 6060 cGy delivered in 33 fractions over 44 elapsed days from 05/18/2019 through 07/02/2019. In addition, we treated the patient to the right supraclavicular and axillary lymph node drainage sites for a dose of 4860 cGy delivered in 27 fractions over 37 elapsed days from 05/18/2019 through 06/24/2019. The lymph node drainage sites were treated on a linear accelerator utilizing a combination of 6X and 15X photons via 3D conformal technique. Ms. Casper tolerated her treatments quite well and was able to complete therapy as prescribed without interruption. I have scheduled the patient see me again in 1 month for further followup. She will also continue to be followed by her other physicians as well. Thank you for allowing us to participate in the care of this very pleasant woman. If I could be of any further assistance or provide you with any information, please free to contact me at anytime. cc: MD Freda Patel MD Lisa M. Lai, MD Abirami Sivapiragasam, MD
== END 2019-07-12 ==
LOC: M ONCR 09:54
PROVIDERS: ATTEND Radiology Radiation Oncology
DX: C50.911 Malignant neoplasm of unspecified site of right female breast (principal)

== ENCOUNTER → 2019-08-04 | Outpatient (CLI) | payer MEDICARE ==
[~2019-08-04] MED LIST changes: +CAPE1TAB2 PO
--- NOTE | 2019-08-05 08:33 | RADONC ---
RADIATION ONCOLOGY PROGRESS NOTE FOLLOW UP NOTE: DATE: 08/04/2019 CHART NUMBER: [id number] Mrs. Casper ,with a diagnosis of right breast cancer stage yIIA, ypT1b, N1a, M0, ER negative, [place] positive, HER2/luis negative, grade 2, is returning for a followup visit. She completed her radiotherapy on 07/02/2019 and has done quite well. She is currently on capecitabine given by Dr. Polk. Her redness/erythema has completely resolved and she denies any significant untoward side effects from her radiotherapy. She occasionally will have a small amount of discomfort within the irradiated breast. Her energy level is such that she is able to maintain most for day-to-day activities without any alteration of her lifestyle and she denies any nausea, vomiting, coughing, sputum production or hemoptysis. EXAMINATION FINDINGS: The skin within the irradiated volume shows no significant erythema nor desquamation. There is no palpable peripheral lymphadenopathy. Lungs are clear. Heart regular without murmurs. Abdomen without evidence of hepatomegaly, masses, deep abdominal tenderness. Extremities without cyanosis, clubbing or edema. IMPRESSION: The patient has done well with her radiotherapy with no residual sequelae. PLAN: We will see her on a p.r.n. basis as she is seeing her referring physicians including Dr. Freda Polk and Dr. Burnett, Dr. Nogueira and Dr. Los Gerber. [facility]
== END ==
LOC: M ONCR 10:10
PROVIDERS: ATTEND Radiology Radiation Oncology
DX: C50.411 Malignant neoplasm of upper-outer quadrant of right female breast (principal)

== ENCOUNTER → 2019-08-25 | Outpatient (REF) | payer MEDICARE, MEDICAID | LOC: M LAB REF 13:47 | PROVIDERS: ATTEND Physician Assistant Surgical | DX: E89.0 Postprocedural hypothyroidism (principal); Z85.3 Personal history of malignant neoplasm of breast ==

== ENCOUNTER 2019-09-30 14:18 | Emergency (ER) | payer MEDICARE, MEDICAID ==
[~2019-09-30] VITALS: Ht 157.5 cm; Wt 59.9 kg
[2019-09-30 15:55] LABS: BASO % 0.3 % (0.0-1.0); EOS # 0.2 10^3/uL (0.0-0.5); EOS % 2.7 % (0.0-3.0); HEMATOCRIT 41.4 % (36.0-47.0); HEMOGLOBIN 13.8 g/dl (12.0-15.5); MEAN CORPUSCULAR HEMOGLOBIN 31.7 pg (27.0-33.0); MEAN CORPUSCULAR HGB CONC 33.3 g/dl (32.0-36.5); MONO # 0.6 10^3/uL (0.0-0.8); MONO % 8.2 % (0.0-5.0); NEUTROPHILS # 5.6 10^3/uL (1.5-8.5); NEUTROPHILS % 75.4 % (36.0-66.0); PLATELET COUNT, AUTOMATED 184 10^3/uL (150-450); RED BLOOD COUNT 4.36 10^6/uL (4.00-5.40); WHITE BLOOD COUNT 7.5 10^3/uL (4.0-10.0)
[2019-09-30 16:14] LABS: ERYTHROCYTE SEDIMENTATION RATE 17 mm/hr (0-30)
[2019-09-30 16:15] LABS: BLOOD UREA NITROGEN 12 MG/DL (7-18); CALCIUM LEVEL 9.2 MG/DL (8.8-10.2); CARBON DIOXIDE LEVEL 26 MEQ/L (21-32); CHLORIDE LEVEL 105 MEQ/L (98-107); CREATININE FOR GFR 0.85 MG/DL (0.55-1.30); GLOMERULAR FILTRATION RATE > 60.0 (>45); GLUCOSE, FASTING 81 MG/DL (70-100); SODIUM LEVEL 140 MEQ/L (136-145)
[2019-09-30] MEDS ORDERED: EXCEDRIN MIGRAINE TABLET PO ONE (16:15)
[2019-09-30] MEDS ORDERED: ISOVUE-370 76% 100ML VIAL (Q9967) As Ordered ONE (16:24)
[2019-09-30 18:45] VITALS: BP 131/79
[2019-10-01] MEDS ORDERED: CAPE1TAB2 PO (10:15)
--- NOTE | 2019-10-01 10:39 | REP ---
CT neck soft tissues: 09/30/2019. Indication: Neck swelling. Comparison: None. Technique: Axial CT images of the neck soft tissues were obtained following the administration of 75 ml IV Isovue 370. Findings: No abnormal solid soft tissue masses, abnormal fluid collections or cervical lymphadenopathy are present. No significant vascular abnormalities are present. The visualized lungs are clear. Left-sided Port-A-Cath is noted. Impression: No abnormal solid soft tissue mass, abnormal fluid collection or cervical lymphadenopathy. Electronically Signed by David Jacques DO 09/30/2019 04:49 P
== END 2019-09-30 18:43 | disposition home or self-care (01) ==
LOC: M ED 14:18
DX: J02.9 Acute pharyngitis, unspecified (principal); I48.91 Unspecified atrial fibrillation; Z79.52 Long term (current) use of systemic steroids; Z79.899 Other long term (current) drug therapy; Z88.0 Allergy status to penicillin; Z88.1 Allergy status to other antibiotic agents; Z88.5 Allergy status to narcotic agent; Z88.8 Allergy status to other drugs, medicaments and biological substances
CPT/HCPCS: 70491; 80048; 85025; 85652; 86140; 87486; 87581; 87633; 87798; 87880; 93971; 99284; Q9967

== ENCOUNTER → 2020-03-20 | Outpatient (CLI) | payer MEDICARE ==
[~2020-03-20] MED LIST changes: +GABA-1171 PO; +LETR2.5T2 PO; +VITAD1000T PO; +XELO1TAB PO
== END ==
LOC: M WHC 10:42
PROVIDERS: ATTEND Internal Medicine Medical Oncology
DX: C50.919 Malignant neoplasm of unspecified site of unspecified female breast (principal); Z79.811 Long term (current) use of aromatase inhibitors

== ENCOUNTER → 2020-04-28 | Outpatient (CLI) | payer MEDICARE ==
[~2020-04-28] MED LIST changes: +ANAS1TAB2 PO; -CALC600T3 PO; +CALC600T86 PO; +D31000TA2 PO; +EXEM25TA PO; +TURM500C PO; -VITAD1000T PO
[2020-04-28 17:09] LABS: BASO % 0.5 % (0.0-1.0); EOS # 0.5 10^3/uL (0.0-0.5); EOS % 6.1 % (0.0-3.0); HEMOGLOBIN 13.7 g/dl (12.0-15.5); LYMPH # 1.4 10^3/uL (1.5-5.0); LYMPH % 18.1 % (24.0-44.0); MEAN CORPUSCULAR HEMOGLOBIN 31.6 pg (27.0-33.0); MEAN CORPUSCULAR HGB CONC 33.4 g/dl (32.0-36.5); MEAN CORPUSCULAR VOLUME 94.7 fl (80.0-96.0); MONO # 0.8 10^3/uL (0.0-0.8); MONO % 10.4 % (0.0-5.0); NEUTROPHILS # 4.9 10^3/uL (1.5-8.5); NEUTROPHILS % 64.5 % (36.0-66.0); PLATELET COUNT, AUTOMATED 183 10^3/uL (150-450); RED BLOOD COUNT 4.33 10^6/uL (4.00-5.40); WHITE BLOOD COUNT 7.5 10^3/uL (4.0-10.0)
[2020-04-28 17:39] LABS: ALBUMIN 4.2 GM/DL (3.2-5.2); BILIRUBIN,TOTAL 0.3 MG/DL (0.2-1.0); CALCIUM LEVEL 8.8 MG/DL (8.8-10.2); POTASSIUM SERUM 4.5 MEQ/L (3.5-5.1); TOTAL PROTEIN 8.2 GM/DL (6.4-8.2)
== END ==
LOC: M LAB 16:25
PROVIDERS: ATTEND Internal Medicine Medical Oncology
DX: C50.911 Malignant neoplasm of unspecified site of right female breast (principal)

== ENCOUNTER → 2020-09-12 | Outpatient (REF) | payer MEDICARE ==
[~2020-09-12] MED LIST changes: +ONDA-83 PO
[2020-09-12 13:28] LABS: CREATININE FOR GFR 1.21 MG/DL (0.55-1.30)
== END ==
LOC: M LAB REF 12:24
PROVIDERS: ATTEND Nurse Practitioner Family
DX: N63.10 Unspecified lump in the right breast, unspecified quadrant (principal); Z17.1 Estrogen receptor negative status [ER-]

== ENCOUNTER → 2020-11-30 | Outpatient (CLI) | payer MEDICARE ==
[~2020-11-30] MED LIST changes: +AMLO2.5T3; +BYST2.5T2; -CLIN150C14 PO; +CLIN150C15 PO; +CLINDAMYCIN 600 MG in IV 1 EA IV ONE; +CLINDAMYCIN 600 MG/50 ML PREMIX BAG As Ordered ONE; +ISOVUE-300 61% 50ML VIAL As Ordered ONE; +LIDOCAINE 1% MDV 20ML VIAL As Ordered ONE; +MIDAZOLAM INJ 2MG/2ML VIAL (J2250 PER 1MG) As Ordered ONE; +NS 1,000 ML IV SCH; +PROL60SO; +PROMETHAZINE INJ 25 MG/ML VIAL (J2550) As Ordered ONE; +diphenhydrAMINE 50MG CAP As Ordered ONE; +diphenhydrAMINE 50MG/ML VIAL (J1200) As Ordered ONE; +fentaNYL 100 MCG/2 ML INJECTION (J3010) As Ordered ONE
--- NOTE | 2020-11-30 13:09 | IRHP ---
[facility] IR Pre-Procedure H & P General Date of Service: Nov 30, 2020 Procedure: Same Day Surgery Interval History and Physical I have seen the patient and reviewed last H & P performed within 30 days. There is no significant interval change. History of Present Illness Chief Complaint The patient is a 60-year-old female admitted with a reason for visit of Right Breast Cancer. PRE-PROCEDURE DIAGNOSIS: Right-sided breast cancer HEART: Normal rate. LUNGS: Normal breathing at rest. ASA Classification ASA Classification: III-Severe systemic dis. Mallampati Score: II NPO: Yes Problems with prior sedation: No Obstructive Sleep Apnea: No Plan moderate sedation Allergies Coded Allergies: tramadol (Verified Allergy, Severe, chest pain, 01/06/19) Penicillins (Verified Allergy, Intermediate, rash, 01/06/19) codeine (Verified Allergy, Intermediate, rash, 01/06/19) vancomycin (Verified Allergy, Intermediate, hives, 01/06/19) Home Medications Scheduled Capecitabine (Xeloda), 500 MG PO ASDIRECTED Exemestane (Exemestane), 25 MG PO DAILY Lactobacillus Acidophilus (Probiotic), 1 CAP PO DAILY, (Reported) Levothyroxine Sodium (Synthroid), 100 MCG PO DAILY, (Reported) Lidocaine/Prilocaine (Lidocaine-Prilocaine Cream), 1 APLCT TOP ASDIRECTED, (Reported) Peppermint Oil (Peppermint Oil), 50 MG PO BID, (Reported) Potassium Chloride (K-Tab ER), 1 TAB PO TID, (Reported) Scheduled PRN Ondansetron HCl (Ondansetron HCl), 1 TAB PO TID PRN for nausea/vomiting, (Repo rted) Prochlorperazine Maleate (Prochlorperazine Maleate), 10 MG PO Q6H PRN for NAUSEA OR VOMITING Miscellaneous Medications Amlodipine Besylate (Amlodipine Besylate), (Reported) Calcium Carbonate (Calcium Carbonate), 600 MG PO, (Reported) Cholecalciferol (Vitamin D3) (Vitamin D3), 1,000 UNITS PO, (Reported) Denosumab Injection (Prolia), (Reported) Nebivolol HCl (Bystolic), (Reported) Discontinued Medications Diphenoxylate HCl/Atropine (Lomotil 2.5-0.025 mg Tablet), 1 TAB PO QID Discontinued Reason: Pt states not taking Gabapentin (Gabapentin), 2 CAP PO QHS, (Reported) Discontinued Reason: Pt states not taking Turmeric/Turmeric Root Extract (Turmeric 500 mg Capsule), 500 MG PO BID, (Reported) Discontinued Reason: Pt states not taking ZOYA MAHAN MD Nov 30, 2020 13:09
[2020-11-30 16:45] VITALS: BP 115/68
--- NOTE | 2020-12-01 09:57 | POST-OPPD ---
Postoperative Procedure Note Date Of Procedure: Nov 30, 2020 Time Of Procedure: 16:00 IR Ultrasound and fluoroscopy guided port placement IR Ultrasound of the neck. IR Central Venogram. IR Moderate sedation. Clinical indication: Right-sided breast cancer Physician: Dr. Landis. Procedure: The patient was advised of the benefits, risks, and alternatives of the procedure and informed consent was obtained. A time-out was performed with verification of the patient's name, MRN, site of procedure and type of procedure to be performed. The patient was positioned in the supine position on the angiographic table. The site was prepped and draped in the usual sterile fashion. Moderate sedation was performed by the physician including the presence of an independent trained RN who assisted and monitored the patient's level of consciousness and physiologic status. Following the administration of fentanyl and Versed , the physician spent 45 minutes of continuous face to face time with the patient. Ultrasound of the neck reveals a patent and compressible left internal jugular vein. A it training specialist radiograph reveals no gross abnormality. The neck and anterior chest wall were anesthetized with lidocaine. The left internal jugular vein was accessed using a microintroducer needle under ultrasound guidance, via a lateral approach. An 018 wire was advanced into the vein under fluoroscopic guidance but could not be passed centrally. The needle was removed over the wire and a micro-sheath was advanced over the wire, under fluoroscopy guidance. 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 A Glidewire in conjunction with a 4 Croatian glide cath was then used under fluoroscopy guidance to catheterize the stenosed IJ brachiocephalic junction, the brachiocephalic vein and the SVC. The catheter in conjunction with a wire was then used under fluoroscopic guidance to catheterize the inferior vena cava. The Glidewire was exchanged for an Amplatz wire. An incision at the internal jugular vein access site and anterior chest wall were made using a scalpel. An incision was made at the anterior chest wall. A small pocket was created using a combination of blunt and sharp dissection. A tunneling device was then used to pass the catheter from the pocket to the neck puncture site. An 8- Croatian [employer] Smart power port was then positioned in the pocket. The catheter was then measured and cut. The introducer sheath was exchanged for a peel-away sheath. The catheter was passed through the peel-away sheath into the internal jugular vein and the peel- away sheath was removed. The port tip was positioned at the cavoatrial junction. The port was then accessed with a Platt needle. The port flushes and aspirates well. The puncture site in the neck was closed. The chest wall incision was then closed with 2-0 Vicryl and 4-0 Monocryl. Glue and Steri- Strips were applied. A sterile dressing was then applied. The patient tolerated the procedure well and was returned to the PRU in stable condition. Estimated blood loss: <5 ml. Complications: None. Conclusion: 1. Successful placement of an 8-Croatian [employer] Smart power port via the left internal jugular vein. The port is ready for immediate use. 2. Patient to follow up in IR clinic in 2 weeks. Thank you for this referral. ZOYA LANDIS MD Dec 01, 2020 09:57
== END ==
LOC: M IRPRO 12:20
PROVIDERS: ATTEND Radiology Diagnostic Radiology
DX: C50.911 Malignant neoplasm of unspecified site of right female breast (principal); Z79.890 Hormone replacement therapy; Z79.899 Other long term (current) drug therapy; Z88.0 Allergy status to penicillin; Z88.1 Allergy status to other antibiotic agents; Z88.5 Allergy status to narcotic agent
CPT/HCPCS: 36561; 99152; 99153; C1769; C1788; C1887; C1894; J1200; J1642; J1644; J2250; J3010; Q9967

== ENCOUNTER → 2020-12-08 | Outpatient (CLI) | payer MEDICARE ==
[~2020-12-08] MED LIST changes: -CLINDAMYCIN 600 MG in IV 1 EA IV ONE; -CLINDAMYCIN 600 MG/50 ML PREMIX BAG As Ordered ONE; -ISOVUE-300 61% 50ML VIAL As Ordered ONE; -LIDOCAINE 1% MDV 20ML VIAL As Ordered ONE; -MIDAZOLAM INJ 2MG/2ML VIAL (J2250 PER 1MG) As Ordered ONE; -NS 1,000 ML IV SCH; -PROMETHAZINE INJ 25 MG/ML VIAL (J2550) As Ordered ONE; -diphenhydrAMINE 50MG CAP As Ordered ONE; -diphenhydrAMINE 50MG/ML VIAL (J1200) As Ordered ONE; -fentaNYL 100 MCG/2 ML INJECTION (J3010) As Ordered ONE
--- NOTE | 2020-12-08 14:57 | RADONC.CN ---
Radiation Oncology Hx/Consult Radiation Oncology Consult Date of Service: Dec 08, 2020 Pt Identifier Mesha Casper is a 60 year old female with a history of right breast cancer [id number] ER- DE weakly positive HER2- Grade 2 s/p neoadjuvant chemotherapy followed by lumpectomy and ALND by Dr. Burnett 04/29/19 with pathology showing residual disease and 3/12 positive lymph nodes with JAJA+. She then underwent adjuvant RT 48.6 Gy in 27 fractions to the right whole breast and supraclavicular fossa followed by 12 Gy in 6 fractions to the tumor bed completed 07/02/19. She has subsequently recurred in the right chest wall, Dr. Burnett evaluated and planned for mastectomy, however PET-CT restaging on 11/03/20 d emonstrated a solitary right iliac lesion which was subsequently biopsied on 11/30/20 and returned triple negative breast cancer. She is seen today for consideration of RT in the management of her oligometastatic breast cancer. Diagnosis/Treatment History Oncologic History Per Dr. Sheikh's recent note: cT2 N1 right breast cancer diagnosed September 2018 Dose dense AC four cycles 10/19/2018 - 12/07/2018. Weekly paclitaxel, 6 weeks, 12/29/2018 - 02/03/2019. Paclitaxel/carboplatin weekly, 6 weeks, 02/09/2019 - 03/16/2019. Right partial mastectomy, SLNB (converted to ALND) ALND 04/12/2019, multifocal r esidual disease with evidence of treatment effect, largest residual focus 7 mm; 3/10 nodes, two with isolated tumor cells, largest metastatic deposit 8 mm. Adjuvant radiation 05/18/2019 - 06/24/2019. Capecitabine, adjuvant, 08/03/2019 - 02/17/2020 for residual disease following neoadjuvant chemotherapy. Started denosumab q 6 months for osteoporosis 03/2020. Started letrozole adjuvant endocrine therapy 03/2020. Switched to anastrozole 06/2020 for side effects specifically, sweating, numbness on legs and shortness of breath. Subsequently switched to exemestane 06/2020 for the same side effects from anastrozole. Recurrence: BL mammo and ultrasound in September 2020 showing 0.4 cm hypoechoic nodule in the right pectoralis muscle as well as possible LN. Seen by Dr. Burnett @ [facility] who performed FNA on 10/20/20 which showed adenocarcinoma Subsequent PET-CT on 11/03/20 showed a solitary hypermetabolic focus in the right iliac bone which was biopsied on 11/21/20 and returned triple negative breast cancer [id number] ER/DE/HER2- stage IV Interval History Mesha is here, she feels well she has no focal pain. She has no breast related complaints other than some chronic right sided discomfort which is no different since the recurrence was detected. She did have her port replaced on the left and has some bruising which is resolving. She states Dr. Burnett had planned mastectomy prior to detection of the iliac metastasis. She will be undergoing chemotherapy soon. Her appetite is good and weight stable. Past Medical History: Anemia Asthma Cervical cancer 2006 s/p hysterectomy PAF with loop recorder HTN Grave's disease Past Surgical History: Appendectomy Right hip replacement Family History: Non-contributory Social History: Never smoker Drinks on occasion Allergies / Meds Allergies: Coded Allergies: tramadol (Verified Allergy, Severe, chest pain, 01/06/19) Penicillins (Verified Allergy, Intermediate, rash, 01/06/19) codeine (Verified Allergy, Intermediate, rash, 01/06/19) vancomycin (Verified Allergy, Intermediate, hives, 01/06/19) Home Meds Active Scripts Exemestane (Exemestane) 25 Mg Tablet, 25 MG PO DAILY for 30 Days, #30 TAB Prov:SUSSY SHEIKH MD 09/18/20 Capecitabine (Xeloda) 500 Mg Tablet, 500 MG PO ASDIRECTED for 28 Days, #70 TAB 5 Refills TAKE 3 TABS BY MOUTH IN THE AM (1500MG), TAKE 2 TABS BY MOUTH IN THE PM (1000MG); TAKE FOR 7 DAYS THEN TAKE 7 DAYS OFF. Prov:Freda Polk MD 12/20/19 Prochlorperazine Maleate (Prochlorperazine Maleate) 10 Mg Tab, 10 MG PO Q6H PRN for NAUSEA OR VOMITING for 30 Days, #30 TAB 5 Refills Prov:Freda Polk MD 12/29/18 Reported Medications Nebivolol HCl (Bystolic) 2.5 Mg Tablet 11/28/20 Denosumab Injection (Prolia) 60 Mg/1 Ml Syringe 11/28/20 Amlodipine Besylate (Amlodipine Besylate) 2.5 Mg Tablet 11/28/20 Ondansetron HCl (Ondansetron HCl) 4 Mg Tablet, 1 TAB PO TID PRN for nausea/vomiting for 3 Days, #20 TAB 09/12/20 Cholecalciferol (Vitamin D3) (Vitamin D3) 1,000 Unit Tablet, 1000 UNITS PO, TAB 11/19/19 Calcium Carbonate (Calcium Carbonate) 600 Mg Tablet, 600 MG PO 01/26/19 Lactobacillus Acidophilus (Probiotic) 1 Each Capsule, 1 CAP PO DAILY 01/21/19 Peppermint Oil (Peppermint Oil) 50 Mg Capsule.dr, 50 MG PO BID, CAP 01/21/19 Potassium Chloride (K-Tab ER) 10 Meq Tablet.er, 1 TAB PO TID for 30 Days, #30 TAB 01/21/19 Lidocaine/Prilocaine (Lidocaine-Prilocaine Cream) 1 Cre Cre, 1 APLCT TOP ASDIRECTED, #30 GRAM 01/07/19 Levothyroxine Sodium (Synthroid) 100 Mcg Tab, 100 MCG PO DAILY, TAB 12/11/18 Review of Systems Constitutional: Denies: Chills, Fever, Night Sweats Eyes: Denies: Pain, Vision change HEENT: Denies: Head Aches, Dysphagia, Sore Throat Skin: Denies: Rash, Lesions, Bruising Pulmonary: Denies: Dyspnea, Cough Cardiovascular: Denies: Chest Pain, Palpitations, Edema Breast: Denies: New Breast Lumps / Masses, Breast Skin Changes, Breast Pain or Tenderness Gastrointestinal: Denies: Nausea, Vomiting, Abdominal Pain, Diarrhea Genitourinary: Denies: Dysuria, Frequency, Incontinence Hematologic: Denies: Bruising, Petecchia, Enlarged Lymph Nodes Musculoskeletal: Denies: Neck pain, Back pain Neurological: Denies: Weakness, Numbness, Incoordination Psych: Reports: Mood Normal; Denies: Memory Issues, Thoughts of Self Harm Vital Signs Ht 62" Wt 142 lbs BMI 26 T 97 P 88 RR 18 BP 135/80 O2 98% Pain 0 Fatigue 0 General Exam: Positive: Alert, Cooperative, No Acute Distress Eye Exam: Positive: PERRLA, EOMI ENT EXAM: Positive: Mucous membr. moist/pink, Pharynx Normal Neck Exam: Negative: Thyromegaly, Lymphadenopathy Chest Exam: Positive: Normal air movement; Negative: Rales, Rhonchi, Wheezing Heart Exam: Positive: Rate Normal, Regular Rhythm Breast Exam: Negative: Symmetric Bilaterally (Right UOQ excavated, BL ptotic. Bruising over left breast 2/2 port placement, No palpable lesions in the breasts or axillae BL. No overlying skin changes, minimal fibrosis present right lateral breast) Abdomen Exam: Positive: Soft; Negative: Tenderness, Mass Extremity Exam: Negative: Edema, Tenderness Skin Exam: Positive: Nl turgor and temperature; Negative: Rash Neuro Exam: Positive: Normal Gait, Normal Speech, Cranial Nerves 3-12 NL Psych Exam: Positive: Mental status NL, Mood NL, Memory Intact Diagnostic and Laboratory Diagnostic Review Radiologic images, relevant labs and pathology reports were personally reviewed and discussed with Ms. Casper. Assessment and Plan Impression Ms. Casper is a 60 year old female with a history of right breast cancer [id number] ER- DE weakly positive HER2- Grade 2 s/p neoadjuvant chemotherapy followed by lumpectomy and ALND by Dr. Burnett 04/29/19 with pathology showing residual disease and 3/12 positive lymph nodes with JAJA+. She then underwent adjuvant RT 48.6 Gy in 27 fractions to the right whole breast and supraclavicular fossa followed by 12 Gy in 6 fractions to the tumor bed completed 07/02/19. She has subsequently recurred in the right chest wall, Dr. Burnett evaluated and planned for mastectomy, however PET-CT restaging on 11/03/20 demonstrated a solitary right iliac lesion which was subsequently biopsied on 11/30/20 and returned triple negative breast cancer. She is seen today for consideration of RT in the management of her oligometastatic breast cancer. Stage [id number] triple negative stage IV right breast cancer Performance Status ECOG 0 Plan We had an extensive discussion with Ms. Casper regarding the diagnosis at hand and available therapeutic options. She is well, and asymptomatic from this recurrence of triple negative disease, as of now the extent of recurrence is limited to the right chest wall, the small sub-centimeter nodule which was biopsied, and a more macroscopic solitary bone metastasis in the right posterior iliac bone. Prior to detection of this metastasis Dr. Burnett was considering right mastectomy. As the bone metastasis is solitary, I stongly believe she would benefit from aggressive local therapy upfront, in the form of SBRT, this is supported by an emerging body of literature including promising phase II studies which demonst rate improved PFS and OS compared to systemic therapy alone (SABR-COMET Lancet 2019 chief among them), moreover this approach would be very unlikely to cause side effects, and it would not delay Dr. Sheikh's initiation of systemic therapy. What remains to be resolved is whether Dr. Burnett would still consider mastectomy in this setting. I think that additional radiation to the right chest wall could be done safely, but mastectomy could potentially obviate the need for this, and undoubtedly it would provide superior local control than radiation from the outset. I will call her and discuss this challenging case. For SBRT I will give 35-40 Gy in 5 fractions with DCA planning. We discussed the logistics of receiving radiation therapy in detail including the need for a 1-time planning session. This can occur next week. After discussing the risks, benefits and alternatives to radiation therapy, Ms. Casper was amenable to pursuing radiotherapy. All questions were answered to the patient's satisfaction. We instructed the patient that if there were any questions,concerns or changes in clinical status in the interim to contact us. Recommendations SBRT to solitary right iliac bone metastasis Will clarify the plan for management of right breast recurrence with Dr. Burnett Simulation in the coming week Billing Statement Total time of [39] minutes was spent preparing for the visit [4], obtaining HPI [4], examining the patient [4], reviewing diagnostic tests [5], discussing manag ement options [11], coordinating care [5], and writing this note [6]. FERNANDA CHAN MD Dec 08, 2020 14:57
== END ==
LOC: M ONCR 12:56
PROVIDERS: ATTEND General Practice
DX: C50.411 Malignant neoplasm of upper-outer quadrant of right female breast (principal); C54.1 Malignant neoplasm of endometrium

== ENCOUNTER 2021-01-05 10:48 | Outpatient (RCR) | payer MEDICARE ==
[2021-01-18] MEDS ORDERED: AMBI5TAB PO (09:29)
== END 2021-01-10 ==
LOC: M ONCR 10:48
PROVIDERS: ATTEND General Practice
DX: C79.51 Secondary malignant neoplasm of bone (principal)

== ENCOUNTER 2021-01-21 11:13 | Emergency (ER) | payer MEDICARE ==
[~2021-01-21] VITALS: Ht 157.5 cm; Wt 65.1 kg
[~2021-01-21 11:13] MED LIST changes: +AMBI5TAB PO
[2021-01-21 12:04] LABS: HEMATOCRIT 35.5 % (36.0-47.0); HEMOGLOBIN 11.9 g/dl (12.0-15.5); MEAN CORPUSCULAR HEMOGLOBIN 31.5 pg (27.0-33.0); MEAN CORPUSCULAR HGB CONC 33.5 g/dl (32.0-36.5); MEAN CORPUSCULAR VOLUME 93.9 fl (80.0-96.0); PLATELET COUNT, AUTOMATED 181 10^3/uL (150-450); RED BLOOD COUNT 3.78 10^6/uL (4.00-5.40); WHITE BLOOD COUNT 4.7 10^3/uL (4.0-10.0)
[2021-01-21 12:14] LABS: INR 0.93; PROTHROMBIN TIME 12.7 SECONDS (12.5-14.3)
[2021-01-21 12:35] LABS: ALT/SGPT 33 U/L (12-78); BILIRUBIN,TOTAL 0.3 MG/DL (0.2-1.0); BLOOD UREA NITROGEN 15 MG/DL (7-18); CALCIUM LEVEL 8.1 MG/DL (8.8-10.2); CARBON DIOXIDE LEVEL 26 MEQ/L (21-32); CHLORIDE LEVEL 111 MEQ/L (98-107); CREATININE FOR GFR 0.84 MG/DL (0.55-1.30); GLOMERULAR FILTRATION RATE > 60.0 (>45); GLUCOSE, FASTING 96 MG/DL (70-100); LIPASE 125 U/L (73-393); POTASSIUM SERUM 4.1 MEQ/L (3.5-5.1); SODIUM LEVEL 140 MEQ/L (136-145); TOTAL PROTEIN 7.3 GM/DL (6.4-8.2)
[2021-01-21] MEDS ORDERED: BACI500O21 TOP (13:40)
[2021-01-21 14:00] VITALS: BP 127/76
== END 2021-01-21 14:18 | disposition home or self-care (01) ==
LOC: M ED 11:13
DX: R04.0 Epistaxis (principal); K62.5 Hemorrhage of anus and rectum; C50.411 Malignant neoplasm of upper-outer quadrant of right female breast; I48.91 Unspecified atrial fibrillation; I10 Essential (primary) hypertension; G43.909 Migraine, unspecified, not intractable, without status migrainosus; E05.00 Thyrotoxicosis with diffuse goiter without thyrotoxic crisis or storm; Z88.0 Allergy status to penicillin; Z88.1 Allergy status to other antibiotic agents; Z88.6 Allergy status to analgesic agent; Z79.899 Other long term (current) drug therapy

== ENCOUNTER 2021-02-22 10:49 | Emergency (ER) | payer MEDICARE ==
[~2021-02-22] VITALS: Ht 157.5 cm; Wt 65.1 kg
[~2021-02-22 10:49] MED LIST changes: +BACI500O21 TOP; +LIDO1CRE42 TOP; -LIDO2.5C15 TOP
[2021-02-22 12:10] VITALS: BP 128/69
== END 2021-02-22 12:11 | disposition home or self-care (01) ==
LOC: M ED 10:49
DX: M79.10 Myalgia, unspecified site (principal); R63.0 Anorexia; T50.B95A Adverse effect of other viral vaccines, initial encounter; C50.411 Malignant neoplasm of upper-outer quadrant of right female breast; G43.909 Migraine, unspecified, not intractable, without status migrainosus; J45.909 Unspecified asthma, uncomplicated; E03.9 Hypothyroidism, unspecified; E05.00 Thyrotoxicosis with diffuse goiter without thyrotoxic crisis or storm; Z88.1 Allergy status to other antibiotic agents; Z88.0 Allergy status to penicillin; Z88.5 Allergy status to narcotic agent; Z88.6 Allergy status to analgesic agent; Z79.899 Other long term (current) drug therapy

== ENCOUNTER 2021-03-11 09:46 | Emergency (ER) | payer MEDICARE ==
[~2021-03-11] VITALS: Ht 157.5 cm; Wt 63.2 kg
[~2021-03-11 09:46] MED LIST changes: +COVI2.5V IM
[2021-03-11 10:38] LABS: BASO % 0.3 % (0.0-1.0); EOS # 0.4 10^3/uL (0.0-0.5); EOS % 4.5 % (0.0-3.0); HEMATOCRIT 33.6 % (36.0-47.0); HEMOGLOBIN 11.3 g/dl (12.0-15.5); LYMPH # 0.8 10^3/uL (1.5-5.0); LYMPH % 8.8 % (24.0-44.0); MEAN CORPUSCULAR HEMOGLOBIN 32.2 pg (27.0-33.0); MEAN CORPUSCULAR HGB CONC 33.6 g/dl (32.0-36.5); MEAN CORPUSCULAR VOLUME 95.7 fl (80.0-96.0); MONO # 0.3 10^3/uL (0.0-0.8); MONO % 3.4 % (2.0-8.0); NEUTROPHILS # 7.6 10^3/uL (1.5-8.5); NEUTROPHILS % 82.7 % (36.0-66.0); PLATELET COUNT, AUTOMATED 206 10^3/uL (150-450); RED BLOOD COUNT 3.51 10^6/uL (4.00-5.40); WHITE BLOOD COUNT 9.2 10^3/uL (4.0-10.0)
[2021-03-11 11:02] LABS: ALBUMIN 4.1 GM/DL (3.2-5.2); BILIRUBIN,TOTAL 0.6 MG/DL (0.2-1.0); CALCIUM LEVEL 9.6 MG/DL (8.8-10.2); CREATININE FOR GFR 1.07 MG/DL (0.55-1.30); GLOMERULAR FILTRATION RATE 55.3 (>45); TOTAL PROTEIN 7.3 GM/DL (6.4-8.2)
--- NOTE | 2021-03-11 11:06 | REP ---
INDICATION: cough COMPARISON: 01/21/2019 TECHNIQUE: Portable AP view of the chest FINDINGS: The mediastinum and cardiac silhouette are stable and within normal limits for portable technique. The lung aceves are clear without acute consolidation, effusion, or pneumothorax. Few small surgical clips overlie right axillary region and right lower thorax. Skeletal structures are intact/stable. IMPRESSION: No acute cardiopulmonary process appreciated. <Electronically signed by Hasmukh Vides > 03/11/21 [id number]
[2021-03-11] MEDS ORDERED: ZITHTAB PO (11:31)
[2021-03-11] MEDS ORDERED: FLON1SPR NARES (11:32)
[2021-03-11] MEDS ORDERED: AFRISPR3 (11:33)
[2021-03-11 11:38] VITALS: BP 122/71
== END 2021-03-11 11:55 | disposition home or self-care (01) ==
LOC: M ED 09:46
DX: J02.0 Streptococcal pharyngitis (principal); I48.91 Unspecified atrial fibrillation; I10 Essential (primary) hypertension; J45.909 Unspecified asthma, uncomplicated; C50.919 Malignant neoplasm of unspecified site of unspecified female breast; C79.9 Secondary malignant neoplasm of unspecified site; Z79.899 Other long term (current) drug therapy; Z88.1 Allergy status to other antibiotic agents; Z88.6 Allergy status to analgesic agent; Z88.8 Allergy status to other drugs, medicaments and biological substances

== ENCOUNTER → 2021-04-04 | Outpatient (CLI) | payer MEDICARE ==
[~2021-04-04] MED LIST changes: +AFRISPR3; +FLON1SPR NARES; +ZITHTAB PO
== END ==
LOC: M ONCR 11:24
PROVIDERS: ATTEND General Practice
DX: C79.51 Secondary malignant neoplasm of bone (principal); Z53.9 Procedure and treatment not carried out, unspecified reason

== ENCOUNTER → 2021-04-17 | Outpatient (CLI) | payer MEDICARE ==
--- NOTE | 2021-04-17 15:56 | REP ---
INDICATION: RESTAGING BREAST CANCER C50.811. Recurrent right breast malignancy originally diagnosed in 2018. Status post radiation therapy and chemotherapy. Known recurrences, right pectoralis muscle, right inguinal lymph node, and right iliac bone. COMPARISON: Comparison PET-CT study 03 November 2020.. TECHNIQUE: Fifty-one minutes following the intravenous injection of a 9.11 mCi dose of F-18 FDG, three-dimensional PET scintigraphy is acquired from the skull base to the proximal thighs. Triplanar noncontrast CT scanning is acquired through the same anatomic range for attenuation correction, and image registration with scan parameters optimized to minimize radiation exposure to the patient. PET scintigraphy and CT datasets were fused and displayed on a workstation with multiplanar and projection display capability. FINDINGS: Head and neck soft tissues are unremarkable. There is no abnormal hypermetabolic uptake within the chest. No evidence of pleural or pulmonary parenchymal hypermetabolic uptake is seen. No leonardo uptake is observed. There is however a small focus of barely perceptible increased uptake without an associated mass in the right pectoralis muscle, maximum standard uptake value 1.26, previously 2.30. In the abdomen and pelvis, normal hepatic, splenic, gastrointestinal, and genitourinary FDG accumulation is seen. No abnormal hypermetabolic uptake focus is seen within the abdomen or pelvis. No pelvic or inguinal hypermetabolic lymph node uptake is appreciated. The previously noted mixed lytic and sclerotic focus of increased uptake in the right iliac bone is again seen at the superior margin of the SI joint on the right. This has maximum standard uptake value today of 4.49. Previously, this had a maximum standard uptake value of 9.80. No other abnormal skeletal focus is seen. IMPRESSION: Hypermetabolic uptake persists in the right iliac bone lesion with decreased SUV value. No new bone lesion is seen. No other abnormal hypermetabolic uptake is seen. Barely perceptible uptake along the right pectoralis muscle. <Electronically signed by Mahamed King > 04/17/21 [id number]
== END ==
LOC: M PLARAD 08:45
PROVIDERS: ATTEND Internal Medicine Medical Oncology
DX: C50.811 Malignant neoplasm of overlapping sites of right female breast (principal); C79.51 Secondary malignant neoplasm of bone
CPT/HCPCS: 78815; A9552

== ENCOUNTER → 2021-04-20 | Outpatient (CLI) | payer MEDICARE ==
--- NOTE | 2021-04-20 11:40 | RADONC ---
Radiation Oncology Hx/FUP Radiation Oncology Hx/FUP Date of Service: Apr 20, 2021 Pt Identifier Mesha Casper is a 60 year old female seen for a followup visit today at the department of radiation oncology for a history of right breast cancer [id number] ER- CA weakly positive HER2- Grade 2 s/p neoadjuvant chemotherapy followed by lumpectomy and ALND by Dr. Burnett 04/29/19 with pathology showing residual disease and 3/12 positive lymph nodes with JAJA+. She then underwent adjuvant RT 48.6 Gy in 27 fractions to the right whole breast and supraclavicular fossa followed by 12 Gy in 6 fractions to the tumor bed completed 07/02/19. She has subsequently recurred in the right chest wall, Dr. Burnett evaluated and planned for mastectomy, however PET-CT restaging on 11/03/20 demonstrated a solitary right iliac lesion which was subsequently biopsied on 11/30/20 and returned triple negative breast cancer. She underwent SBRT to this site 35 Gy in 5 fractions completed on 01/05/21. She has been maintained on single agent abraxane q3w from 02/06/21 on. Diagnosis/Treatment History Oncologic History Right breast cancer 2017 cT2 N1 right breast cancer diagnosed September 2018 Dose dense AC four cycles 10/19/2018 - 12/07/2018. Weekly paclitaxel, 6 weeks, 12/29/2018 - 02/03/2019. Paclitaxel/carboplatin weekly, 6 weeks, 02/09/2019 - 03/16/2019. Right partial mastectomy, SLNB (converted to ALND) ALND 04/12/2019, multifocal residual disease with evidence of treatment effect, largest residual focus 7 mm; 3/10 nodes, two with isolated tumor cells, largest metastatic deposit 8 mm. Adjuvant radiation 05/18/2019 - 06/24/2019. Capecitabine, adjuvant, 08/03/2019 - 02/17/2020 for residual disease following neoadjuvant chemotherapy. Started denosumab q 6 months for osteoporosis 03/2020. Started letrozole adjuvant endocrine therapy 03/2020. Switched to anastrozole 06/2020 for side effects specifically, sweating, numbness on legs and shortness of breath. Subsequently switched to exemestane 06/2020 for the same side effects from anastrozole. Recurrence: BL mammo and ultrasound in September 2020 showing 0.4 cm hypoechoic nodule in the right pectoralis muscle as well as possible LN. Seen by Dr. Burnett @ [facility] who performed FNA on 10/20/20 which showed adenocarcinoma Subsequent PET-CT on 11/03/20 showed a solitary hypermetabolic focus in the right iliac bone which was biopsied on 11/21/20 and returned triple negative breast cancer; [id number] ER/CA/HER2- stage IV 01/01/21-01/05/21: SBRT to the solitary metastasis 35 Gy in 5 fractions 02/06/21- Abraxane q3w Recent data: 04/17/21 PET-CT FINDINGS: Head and neck soft tissues are unremarkable. There is no abnormal hypermetabolic uptake within the chest. No evidence of pleural or pulmonary parenchymal hypermetabolic uptake is seen. No leonardo uptake is observed. There is however a small focus of barely perceptible increased uptake without an associated mass in the right pectoralis muscle, maximum standard uptake value 1.26, previously 2.30. In the abdomen and pelvis, normal hepatic, splenic, gastrointestinal, and genitourinary FDG accumulation is seen. No abnormal hypermetabolic uptake focus is seen within the abdomen or pelvis. No pelvic or inguinal hypermetabolic lymph node uptake is appreciated. The previously noted mixed lytic and sclerotic focus of increased uptake in the right iliac bone is again seen at the superior margin of the SI joint on the right. This has maximum standard uptake value today of 4.49. Previously, this had a maximum standard uptake value of 9.80. No other abnormal skeletal focus is seen. IMPRESSION: Hypermetabolic uptake persists in the right iliac bone lesion with decreased SUV value. No new bone lesion is seen. No other abnormal hypermetabolic uptake is seen. Barely perceptible uptake along the right pectoralis muscle. Interval History Mesha is here with her , she feels well. Has no pain to speak of, weight and appetite are stable. She states she is tolerating chemotherapy with only mild fatigue. Current Therapy Abraxane q3w Stage [id number] ER/CA/HER2- stage IV Social History: Never smoker Drinks on occasion Allergies / Meds Allergies: Coded Allergies: tramadol (Verified Allergy, Severe, chest pain, 01/06/19) Penicillins (Verified Allergy, Intermediate, rash, 01/06/19) codeine (Verified Allergy, Intermediate, rash, 01/06/19) vancomycin (Verified Allergy, Intermediate, hives, 01/06/19) Home Meds Active Scripts Oxymetazoline HCl (Afrin) 15 Ml Mist, 0.05 % NA every 12 hours, #1 BOTTLE x 3 days only Prov:Amber Jasso MD 03/11/21 Fluticasone Propionate (Flonase Allergy Relief) 9.9 Ml [place].susp, 2 SPRAY NARES DAILY for 30 Days, #9.9 ML Prov:Amber Jasso MD 03/11/21 Ondansetron HCl (Ondansetron HCl) 4 Mg Tablet, 1 TAB PO TIDP PRN for nausea/vomiting, #21 TAB 2 Refills Prov:SUSSY SHEIKH MD FACP 12/26/20 Reported Medications Nebivolol HCl (Bystolic) 2.5 Mg Tablet 11/28/20 Denosumab Injection (Prolia) 60 Mg/1 Ml Syringe 11/28/20 Amlodipine Besylate (Amlodipine Besylate) 2.5 Mg Tablet 11/28/20 Cholecalciferol (Vitamin D3) (Vitamin D3) 1,000 Unit Tablet, 1000 UNITS PO, TAB 11/19/19 Calcium Carbonate (Calcium Carbonate) 600 Mg Tablet, 600 MG PO 01/26/19 Peppermint Oil (Peppermint Oil) 50 Mg Capsule.dr, 50 MG PO BID, CAP 01/21/19 Potassium Chloride (K-Tab ER) 10 Meq Tablet.er, 1 TAB PO TID for 30 Days, #30 TAB 01/21/19 Lidocaine/Prilocaine (Lidocaine-Prilocaine Cream) 1 Cre Cre, 1 APLCT TOP ASDIRECTED, #30 GRAM 01/07/19 Levothyroxine Sodium (Synthroid) 100 Mcg Tab, 100 MCG PO DAILY, TAB 12/11/18 Review of Systems Review of Systems Constitutional: Reports: Other symptoms (Hair loss); Denies: Chills, Fever, Weight Loss Eyes: Denies: Pain HEENT: Denies: Head Aches Skin: Denies: Rash Breast: Denies: New Breast Lumps / Masses Pulmonary: Denies: Dyspnea, Cough Cardiovascular: Denies: Chest Pain Gastrointestinal: Denies: Nausea, Vomiting Hematologic: Denies: Bruising, Enlarged Lymph Nodes Musculoskeletal: Denies: Neck pain, Back pain, Leg pain Neurological: Denies: Weakness, Numbness Psych: Reports: Mood Normal Physical Examination Vital Signs Wt 141 lbs (from 140 on 01/08/21) T 98 P 90 RR 18 BP 119/73 O2 99% Pain 0 Fatigue 1 General Exam: Positive: Alert, Cooperative, No Acute Distress Eye Exam: Positive: PERRLA, EOMI ENT EXAM: Positive: Atraumatic Neck Exam: Positive: Supple Chest Exam: Positive: Clear to auscultation Heart Exam: Positive: Rate Normal Abdomen Exam: Positive: Soft Extremity Exam: Negative: Edema Skin Exam: Positive: Nl turgor and temperature Neuro Exam: Positive: Normal Gait, Normal Speech, Cranial Nerves 3-12 NL Psych Exam: Positive: Mental status NL Diagnostic and Laboratory Diagnostic Review Radiologic images, relevant labs and pathology reports were personally reviewed and discussed with Ms. Casper. Assessment and Plan Impression Assessment Ms. Casper is a 60 year old female with a history of right breast cancer [id number] ER- CA weakly positive HER2- Grade 2 s/p neoadjuvant chemotherapy followed by lumpectomy and ALND by Dr. Burnett 04/29/19 with pathology showing residual disease and 3/12 positive lymph nodes with JAJA+. She then underwent adjuvant RT 48.6 Gy in 27 fractions to the right whole breast and supraclavicular fossa followed by 12 Gy in 6 fractions to the tumor bed completed 07/02/19. She has subsequently recurred in the right chest wall, Dr. Burnett evaluated and planned for mastectomy, however PET-CT restaging on 11/03/20 demonstrated a solitary right iliac lesion which was subsequently biopsied on 11/30/20 and returned triple negative breast cancer. She underwent SBRT to this site 35 Gy in 5 fractions completed on 01/05/21. She has been maintained on single agent abraxane q3w from 02/06/21 on. She is doing well clinically, says she has been in discussion with Dr. Burnett about right mastectomy contingent upon response of the solitary metastasis to SBRT. We discussed her PET-CT which shows no evidence of progression at any new sites. She has a stable minute focus of low-grade uptake abutting the right pectoral muscle. The right iliac lesion has a metabolic CA at this time, previously the SUV of the lesion was >9, now it is 4.5. I explained that this may indicate residual disease, or ongoing inflammation/treatment response. In general radiographic and metabolic response to SBRT can manifest over 12 or more months post treatment--time will tell. At this time, I do not think any additional action on this site is warranted. I think routine restaging imaging per Dr. Sheikh should be sufficient at this time. If there was a question of progression elsewhere, then a PET-CT would be reasonable. I explained that if there was progression at the iliac site (metabolically or morphologically) down the line, I would not hesitate to reirradiate with SBRT, given its location the risk of pain or insufficiency fracture would be extremely low, provided it remains an oligometastasis. With respect to pursuing mastectomy or not in this setting, I do not think there is clear answer. Mesha mentioned she has follow up with Dr. Burnett upcoming, so I will ensure that she receives this note. Performance Status ECOG 0 Plan Continued restaging scans per Dr. Sheikh Follow up with me in 3 months time Ms. Casper was encouraged to call with questions or concerns in the interim period. Billing Statement Total time of [33] minutes was spent preparing for the visit [3], obtaining HPI [4], examining the patient [2], reviewing diagnostic tests [7], discussing management options [7], coordinating care [2], and writing this note [8]. FERNANDA CHAN MD Apr 20, 2021 11:40
== END ==
LOC: M ONCR 09:44
PROVIDERS: ATTEND General Practice
DX: C50.411 Malignant neoplasm of upper-outer quadrant of right female breast (principal); C79.51 Secondary malignant neoplasm of bone; Z79.890 Hormone replacement therapy; Z79.899 Other long term (current) drug therapy; Z88.0 Allergy status to penicillin; Z88.1 Allergy status to other antibiotic agents; Z88.5 Allergy status to narcotic agent; Z92.21 Personal history of antineoplastic chemotherapy; Z92.3 Personal history of irradiation

== ENCOUNTER → 2021-07-11 | Outpatient (CLI) | payer MEDICARE ==
[~2021-07-11] MED LIST changes: -AMLO2.5T3; +AMLO2.5T3 PO; -BYST2.5T2; +BYST2.5T2 PO; -CLIN150C15 PO; +CLIN150C17 PO; +GASTROGRAFIN SOLUTION 30ML (Q9963) As Ordered ONE; +ISOVUE-370 76% 100ML VIAL As Ordered ONE
--- NOTE | 2021-07-11 14:01 | REP ---
INDICATION: MET BREAST CA. COMPARISON: None. Stat report requested. If and when priors become available an addendum to this report can be made if necessary. TECHNIQUE: Standard helical technique after the intravenous administration of 100 cc Isovue 370 and oral bowel preparatory contrast administration. FINDINGS: There are numerous focal areas of low density scattered throughout the liver parenchyma too numerous to count or individually assess and ranging in size from 1 mm to 2 cm. Delayed imaging through the liver show some, not all, of these lesions may be enhancing. Some are too small to assess for measurable enhancement, however. The gallbladder, spleen, pancreas, adrenal glands, and kidneys are within normal limits. The abdominal aorta and para-aortic regions are within normal limits. The bowel loops and the mesenteries are within normal limits. There is no evidence of free fluid or free air. Beam hardening spray artifact from a right hip arthroplasty obscures multiple pelvic images. Bone window technique throughout the examination shows mixed sclerotic and potentially lytic lesions in the right posterior ilium. IMPRESSION: 1. Findings involving the liver as described above. Review of the imaged portion of the liver obtained during CT examination of the chest of 12/16/2018 shows that at least some of these low-density lesions were present on that exam. Examinations are technically different and cannot be exactly compared. Foci of metastatic disease cannot be ruled out by this exam. Pre and post gadolinium enhanced hepatic MRI is recommended. 2. Osseous findings as described above concerning for metastatic disease. These areas can also be assessed with conventional bone scintigraphy. Due to the right hip arthroplasty some if not all of the lesions could be obscured by magnetic susceptibility artifact. 3. Other findings as described above. <Electronically signed by Sonido Alexander > 07/11/21 [id number]
== END ==
LOC: M RAD 11:30
PROVIDERS: ATTEND Internal Medicine Medical Oncology
DX: C50.919 Malignant neoplasm of unspecified site of unspecified female breast (principal); Z96.641 Presence of right artificial hip joint
CPT/HCPCS: 71260; 74177; Q9963; Q9967

== ENCOUNTER → 2021-07-23 | Outpatient (CLI) | payer MEDICARE ==
[~2021-07-23] MED LIST changes: -GASTROGRAFIN SOLUTION 30ML (Q9963) As Ordered ONE; -ISOVUE-370 76% 100ML VIAL As Ordered ONE
--- NOTE | 2021-07-24 12:46 | REP ---
INDICATION: RESTAGING RIGHT BREAST CANCER C50.811. COMPARISON: PET-CT 04/17/2021 the latest prior and CT examination chest abdomen and pelvis 07/11/2021 TECHNIQUE: After the intravenous administration of 9.07 mCi of FDG 18 triplane whole-body PET-CT was performed from the skull base to the mid thigh FINDINGS: The abnormal hypermetabolic activity seen previously in the right iliac bone and having a maximal SUV value of 4.49 on the prior exam has a maximal SUV value of 2.68 today. There is new hypermetabolic activity seen in the overlying right gluteus musculature having a maximal SUV value of 3.95. The CT findings of that same region show no corresponding abnormality. No other areas of abnormal hypermetabolic activity are seen in the neck, chest, abdomen, and pelvis. The examination is otherwise essentially unchanged from the prior exam. IMPRESSION: 1. The right radha pelvic osseous hypermetabolism seen on the prior exam has decreased as described above. 2. There is associated skeletal muscle hypermetabolism as described above. The etiology of this is uncertain. <Electronically signed by Sonido Alexander > 07/24/21 [id number]
== END ==
LOC: M PLARAD 15:24
PROVIDERS: ATTEND Internal Medicine Medical Oncology
DX: C50.811 Malignant neoplasm of overlapping sites of right female breast (principal)
CPT/HCPCS: 78815; A9552

== ENCOUNTER → 2021-07-25 | Outpatient (CLI) | payer MEDICARE ==
--- NOTE | 2021-07-25 09:52 | REP ---
INDICATION: LIVER LESIONS COMPARISON: None. TECHNIQUE: Real time sanchez scale ultrasound examination using curved array transducer. FINDINGS: Liver demonstrates diffuse fatty infiltration along with scattered simple and complex cysts measuring up to approximately 2.6 cm diameter. Pancreas is incompletely evaluated due to interposed bowel gas. The gallbladder is normal and without gallstones, wall thickening, or pericholecystic fluid. No biliary ductal dilatation is appreciated and the common bile duct measures 2.8 mm diameter. Right kidney is normal in reniform shape without hydronephrosis and measures 10.2 x 4.8 x 4.0 cm. No ascites in the visualized right upper quadrant. IMPRESSION: Hepatosteatosis with scattered simple and complex appearing hepatic cysts. No obvious focal hepatic mass lesion otherwise identified by current ultrasound evaluation. <Electronically signed by Hasmukh Vides > 07/25/21 [id number]
== END ==
LOC: M RAD 09:05
PROVIDERS: ATTEND Internal Medicine Medical Oncology
DX: K76.0 Fatty (change of) liver, not elsewhere classified (principal); K76.89 Other specified diseases of liver

== ENCOUNTER → 2021-08-06 | Outpatient (CLI) | payer MEDICARE ==
--- NOTE | 2021-08-06 15:16 | REP ---
INDICATION: ABN FINDING ON PET. COMPARISON: None. TECHNIQUE: Real-time sonographic evaluation over a palpable abnormality right buttock/lower back area FINDINGS: There are no cystic or solid masses IMPRESSION: Negative ultrasound examination does not obviate further anatomical imaging with gadolinium enhanced MRI if soft tissue mass is of clinical concern. <Electronically signed by Sonido Alexander > 08/06/21 [id number]
== END ==
LOC: M RAD 14:03
PROVIDERS: ATTEND Nurse Practitioner Adult Health
DX: R22.2 Localized swelling, mass and lump, trunk (principal); C50.911 Malignant neoplasm of unspecified site of right female breast

== ENCOUNTER → 2021-08-21 | Outpatient (CLI) | payer MEDICARE ==
[~2021-08-21] MED LIST changes: +OXYC1TAB23 PO; +PRED10TA2 PO; +ROSU5TAB5 PO
--- NOTE | 2021-08-21 11:57 | RADONC ---
Radiation Oncology Hx/FUP Radiation Oncology Hx/FUP Date of Service: Aug 21, 2021 Pt Identifier Mesha Casper is a 61 year old female seen for a followup visit today at the department of radiation oncology for a history of right breast cancer [id number] ER- NE weakly positive HER2- Grade 2 s/p neoadjuvant chemotherapy followed by lumpectomy and ALND by Dr. Burnett 04/29/19 with pathology showing residual disease and 3/12 positive lymph nodes with JAJA+. She then underwent adjuvant RT 48.6 Gy in 27 fractions to the right whole breast and supraclavicular fossa followed by 12 Gy in 6 fractions to the tumor bed completed 07/02/19. She has subsequently recurred in the right chest wall, Dr. Burnett evaluated and planned for mastectomy, however PET-CT restaging on 11/03/20 demonstrated a solitary right iliac lesion which was subsequently biopsied on 11/30/20 and returned triple negative breast cancer. She underwent SBRT to this site 35 Gy in 5 fractions completed on 01/05/21. She received single agent abraxane q3w from 02/06/21 to 06/07/21. Diagnosis/Treatment History Oncologic History Right breast cancer 2017 cT2 N1 right breast cancer diagnosed September 2018 Dose dense AC four cycles 10/19/2018 - 12/07/2018. Weekly paclitaxel, 6 weeks, 12/29/2018 - 02/03/2019. Paclitaxel/carboplatin weekly, 6 weeks, 02/09/2019 - 03/16/2019. Right partial mastectomy, SLNB (converted to ALND) ALND 04/12/2019, multifocal residual disease with evidence of treatment effect, largest residual focus 7 mm; 3/10 nodes, two with isolated tumor cells, largest metastatic deposit 8 mm. Adjuvant radiation 05/18/2019 - 06/24/2019. Capecitabine, adjuvant, 08/03/2019 - 02/17/2020 for residual disease following neoadjuvant chemotherapy. Started denosumab q 6 months for osteoporosis 03/2020. Started letrozole adjuvant endocrine therapy 03/2020. Switched to anastrozole 06/2020 for side effects specifically, sweating, numbness on legs and shortness of breath. Subsequently switched to exemestane 06/2020 for the same side effects from anastrozole. Recurrence: BL mammo and ultrasound in September 2020 showing 0.4 cm hypoechoic nodule in the right pectoralis muscle as well as possible LN. Seen by Dr. Burnett @ [facility] who performed FNA on 10/20/20 which showed adenocarcinoma Subsequent PET-CT on 11/03/20 showed a solitary hypermetabolic focus in the right iliac bone which was biopsied on 11/21/20 and returned triple negative breast cancer; [id number] ER/NE/HER2- stage IV 01/01/21-01/05/21: SBRT to the solitary metastasis 35 Gy in 5 fractions 02/06/21-06/07/21 Abraxane q3w 05/07/21 PET-CT decrease in SUV of the right iliac lesion from 9-->4. Recent data: 07/23/21 PET-CT No residual uptake in the right iliac lesion, inflammatory uptake in the right gluteus idalia Interval History Mesha has some aching pain and tenderness in the right buttock. She has taken oxycodone for this without much relief. She is hesitant to take NSAIDs. Does not tolerate these well. Tylenol also not helpful. She is otherwise without any additional sites of pain, or other complaints. Current Therapy Surveillance Stage Right breast cancer [id number] ER/NE/HER2- stage IV Social History: Never smoker Drinks on occasion Allergies / Meds Allergies: Coded Allergies: tramadol (Verified Allergy, Severe, chest pain, 01/06/19) Penicillins (Verified Allergy, Intermediate, rash, 01/06/19) codeine (Verified Allergy, Intermediate, rash, 01/06/19) vancomycin (Verified Allergy, Intermediate, hives, 01/06/19) Home Meds Active Scripts Prednisone (Prednisone) 10 Mg Tablet, 1 TAB PO ASDIRECTED, #40 TAB Take 4 tabs for 5 days, then take 2 tabs for 5 days, then take 1 tab for 5 days, then take 1/2 tab for 5 days, then stop Prov:FERNANDA CHAN MD 08/21/21 Oxycodone HCl/Acetaminophen (Oxycodone-Acetaminophen 5-325) 1 Each Tablet, 1 TAB PO Q6HP for pain MDD 2 for 10 Days, #20 TAB 0 Refills Prov:SUSSY CALERO MD FACP 08/16/21 Lidocaine/Prilocaine (Lidocaine-Prilocaine Cream) 1 Cre Cre, 1 APLCT TOP ASDIRECTED, #30 GRAM Prov:SUSSY CALERO MD FACP 05/10/21 Oxymetazoline HCl (Afrin) 15 Ml Mist, 0.05 % NA every 12 hours, #1 BOTTLE x 3 days only Prov:Amber Jasso MD 03/11/21 Fluticasone Propionate (Flonase Allergy Relief) 9.9 Ml [place].susp, 2 SPRAY NARES DAILY for 30 Days, #9.9 ML Prov:Amber Jasso MD 03/11/21 Ondansetron HCl (Ondansetron HCl) 4 Mg Tablet, 1 TAB PO TIDP PRN for nausea/vomiting, #21 TAB 2 Refills Prov:SUSSY CALERO MD FACP 12/26/20 Reported Medications Rosuvastatin Calcium (Rosuvastatin Calcium) 5 Mg Tablet, 1 TAB PO DAILY 08/16/21 Nebivolol HCl (Bystolic) 2.5 Mg Tablet, 1 TAB PO DAILY 11/28/20 Denosumab Injection (Prolia) 60 Mg/1 Ml Syringe, [id number] 11/28/20 Amlodipine Besylate (Amlodipine Besylate) 2.5 Mg Tablet, 1 TAB PO DAILY 11/28/20 Cholecalciferol (Vitamin D3) (Vitamin D3) 1,000 Unit Tablet, 1000 UNITS PO, TAB 11/19/19 Calcium Carbonate (Calcium Carbonate) 600 Mg Tablet, 600 MG PO DAILY 01/26/19 Peppermint Oil (Peppermint Oil) 50 Mg Capsule.dr, 50 MG PO BID, CAP 01/21/19 Potassium Chloride (K-Tab ER) 10 Meq Tablet.er, 1 TAB PO TID for 30 Days, #30 TAB 01/21/19 Levothyroxine Sodium (Synthroid) 100 Mcg Tab, 100 MCG PO DAILY, TAB 12/11/18 Review of Systems Review of Systems Constitutional: Denies: Fatigue, Weight Loss Pulmonary: Denies: Dyspnea Cardiovascular: Denies: Chest Pain Gastrointestinal: Denies: Abdominal Pain Musculoskeletal: Reports: Other (right buttock pain); Denies: Back pain, Joint pain Neurological: Denies: Weakness, Numbness Psych: Reports: Mood Normal Physical Examination Vital Signs Wt 138 lbs P 85 RR 18 BP 129/82 O2 97% Pain 4 Fatigue 1 General Exam: Alert, Cooperative, No Acute Distress Eye Exam: PERRLA, EOMI ENT EXAM: Atraumatic Neck Exam: Supple Chest Exam: Clear to auscultation Heart Exam: Rate Normal Abdomen Exam: Soft Extremity Exam: Tenderness (There is induration and tenderness over the right gluteus idalia); Negative: Edema Skin Exam: Nl turgor and temperature Neuro Exam: Normal Gait, Normal Speech, Cranial Nerves 3-12 NL Psych Exam: Mental status NL Diagnostic and Laboratory Diagnostic Review Radiologic images, relevant labs and pathology reports were personally reviewed and discussed with Ms. Casper. Assessment and Plan Impression Assessment Ms. Casper is a 61 year old female with a history of right breast cancer [id number] ER- NE weakly positive HER2- Grade 2 s/p neoadjuvant chemotherapy followed by lumpectomy and ALND by Dr. Burnett 04/29/19 with pathology showing residual disease and 3/12 positive lymph nodes with JAJA+. She then underwent adjuvant RT 48.6 Gy in 27 fractions to the right whole breast and supraclavicular fossa followed by 12 Gy in 6 fractions to the tumor bed completed 07/02/19. She has subsequently recurred in the right chest wall, Dr. Burnett evaluated and planned for mastectomy, however PET-CT restaging on 11/03/20 demonstrated a solitary right iliac lesion which was subsequently biopsied on 11/30/20 and returned triple negative breast cancer. She underwent SBRT to this site 35 Gy in 5 fractions completed on 01/05/21. She received single agent abraxane q3w from 02/06/21 to 06/07/21. 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 This is a CTCAE grade 2 late radiation complication. For her pain I suggested we try a prednisone taper; 40 mg x 5 days, 20 mg x 5 days, 10 mg x 5 days, 5 mg x 5 days then off. I will call her at the end of the taper to see how she is doing. Fortunately the pain is not functionally limiting at this time. With respect to disease control her tumor markers remain normal range and the PET-CT showed metabolic resolution of the previous uptake in the right iliac lesion, in addition there are no new lesions, and the right breast recurrence is also under metabolic control. Therefore I will see her again in 6 months time in effort to split follow up with Dr. Calero. I agree that no systemic therapy is indicated at this time and can be reserved until recurrence is detected. Performance Status ECOG 1 Plan Prednisone taper for RT induced myositis/fibrosis Surveillance scans per Dr. Calero Follow up by phone in 3 weeks, then in person 6 months Ms. Casper was encouraged to call with questions or concerns in the interim period. Billing Statement Total time of [27] minutes was spent preparing for the visit [3], obtaining HPI [5], examining the patient [3], reviewing diagnostic tests [4], discussing management options [4], coordinating care [2], and writing this note [6]. FERNNADA CHAN MD Aug 21, 2021 11:57
== END ==
LOC: M ONCR 10:51
PROVIDERS: ATTEND General Practice
DX: C50.911 Malignant neoplasm of unspecified site of right female breast (principal); L59.8 Other specified disorders of the skin and subcutaneous tissue related to radiation; Z88.0 Allergy status to penicillin; Z88.5 Allergy status to narcotic agent; Z79.899 Other long term (current) drug therapy

== ENCOUNTER → 2021-12-11 | Outpatient (CLI) | payer MEDICARE ==
[~2021-12-11] MED LIST changes: -D31000TA2 PO; -PROC10TA4 PO; +PROC10TA5 PO; +VITA100093 PO
== END ==
LOC: M WHC 09:10
PROVIDERS: ATTEND Specialist
DX: Z12.31 Encounter for screening mammogram for malignant neoplasm of breast (principal)

== ENCOUNTER → 2021-12-19 | Outpatient (CLI) | payer MEDICARE | LOC: M RAD 12:03 | PROVIDERS: ATTEND Internal Medicine Medical Oncology | DX: R05.9 Cough, unspecified (principal); R06.00 Dyspnea, unspecified ==

== ENCOUNTER → 2022-02-20 | Outpatient (CLI) | payer MEDICARE ==
[~2022-02-20] MED LIST changes: +CORTISONE
== END ==
LOC: M ONCR 09:15
PROVIDERS: ATTEND General Practice
DX: C79.51 Secondary malignant neoplasm of bone (principal); Z85.3 Personal history of malignant neoplasm of breast; Z79.52 Long term (current) use of systemic steroids; Z79.899 Other long term (current) drug therapy; Z92.21 Personal history of antineoplastic chemotherapy; Z92.3 Personal history of irradiation; Z88.0 Allergy status to penicillin; Z88.1 Allergy status to other antibiotic agents; Z88.5 Allergy status to narcotic agent

== ENCOUNTER → 2022-03-19 | Outpatient (CLI) | payer MEDICARE | LOC: M PLARAD 13:49 | PROVIDERS: ATTEND Internal Medicine Medical Oncology | DX: C50.411 Malignant neoplasm of upper-outer quadrant of right female breast (principal) | CPT/HCPCS: 78815; A9552 ==

== ENCOUNTER → 2022-06-24 | Outpatient (CLI) | payer MEDICARE ==
[~2022-06-24] MED LIST changes: +LEVO88TA3 PO
== END ==
LOC: M WHC 13:31
PROVIDERS: ATTEND Internal Medicine Medical Oncology
DX: N28.9 Disorder of kidney and ureter, unspecified (principal)

== ENCOUNTER → 2022-07-03 | Outpatient (CLI) | payer MEDICARE ==
[~2022-07-03] MED LIST changes: +PROHANCE 279.3MG/ML 15ML VIAL As Ordered ONE
== END ==
LOC: M RAD 12:12
PROVIDERS: ATTEND Internal Medicine Medical Oncology
DX: C50.919 Malignant neoplasm of unspecified site of unspecified female breast (principal)
CPT/HCPCS: 72197; A9576

== ENCOUNTER → 2022-07-09 | Outpatient (CLI) | payer MEDICARE ==
[~2022-07-09] MED LIST changes: -PROHANCE 279.3MG/ML 15ML VIAL As Ordered ONE
== END ==
LOC: M WHC 08:16
PROVIDERS: ATTEND Internal Medicine Medical Oncology
DX: C50.919 Malignant neoplasm of unspecified site of unspecified female breast (principal); R92.8 Other abnormal and inconclusive findings on diagnostic imaging of breast
CPT/HCPCS: 76604; 77065; G0279

== ENCOUNTER 2022-07-28 10:54 | Emergency (ER) | payer MEDICARE ==
[2022-07-28 13:30] LABS: BASO % 0.3 % (0.0-1.0); EOS # 0.1 10^3/uL (0.0-0.5); EOS % 1.5 % (0.0-3.0); HEMATOCRIT 38.5 % (36.0-47.0); LYMPH # 1.1 10^3/uL (1.5-5.0); LYMPH % 12.3 % (24.0-44.0); MEAN CORPUSCULAR HEMOGLOBIN 31.2 pg (27.0-33.0); MEAN CORPUSCULAR HGB CONC 33.8 g/dl (32.0-36.5); MEAN CORPUSCULAR VOLUME 92.3 fl (80.0-96.0); MONO # 0.6 10^3/uL (0.0-0.8); MONO % 7.2 % (2.0-8.0); NEUTROPHILS # 6.9 10^3/uL (1.5-8.5); NEUTROPHILS % 78.4 % (36.0-66.0); PLATELET COUNT, AUTOMATED 241 10^3/uL (150-450); RED BLOOD COUNT 4.17 10^6/uL (4.00-5.40); WHITE BLOOD COUNT 8.8 10^3/uL (4.0-10.0)
[2022-07-28 14:02] LABS: ALBUMIN 4.3 GM/DL (3.2-5.2); BILIRUBIN,TOTAL 0.4 MG/DL (0.2-1.0); CALCIUM LEVEL 13.1 MG/DL (8.8-10.2); CREATININE FOR GFR 1.52 MG/DL (0.55-1.30); GLOMERULAR FILTRATION RATE 36.7 (>45); POTASSIUM SERUM 3.9 MEQ/L (3.5-5.1); TOTAL PROTEIN 7.9 GM/DL (6.4-8.2)
[2022-07-28] MEDS ORDERED: NS 1,000 ML IV ONE (14:30)
[2022-07-28 17:15] VITALS: BP 120/62
[2022-07-29] MEDS ORDERED: VITA-243 PO (09:44)
[2022-07-29] MEDS ORDERED: CALC1CAP31 PO (09:44)
[2022-07-29] MEDS ORDERED: [UNRECOGNIZED DRUG - OTHER] XX (09:44)
== END 2022-07-28 17:16 | disposition home or self-care (01) ==
LOC: M ED 10:54
DX: E86.0 Dehydration (principal); T45.1X5A Adverse effect of antineoplastic and immunosuppressive drugs, initial encounter; C50.911 Malignant neoplasm of unspecified site of right female breast; E55.9 Vitamin D deficiency, unspecified; G43.909 Migraine, unspecified, not intractable, without status migrainosus; F10.10 Alcohol abuse, uncomplicated; Z86.79 Personal history of other diseases of the circulatory system; Z88.0 Allergy status to penicillin; Z88.1 Allergy status to other antibiotic agents; Z88.5 Allergy status to narcotic agent; Z88.6 Allergy status to analgesic agent; Z79.811 Long term (current) use of aromatase inhibitors; Z79.83 Long term (current) use of bisphosphonates; Z79.899 Other long term (current) drug therapy

== ENCOUNTER → 2022-07-29 | Outpatient (CLI) | payer MEDICARE ==
[~2022-07-29] MED LIST changes: +CALC1CAP31 PO; +LIDOCAINE 1% MDV 20ML VIAL As Ordered ONE; +VITA-243 PO; +[UNRECOGNIZED DRUG - OTHER] XX
[2022-07-29 11:15] VITALS: BP 115/58
== END ==
LOC: M IRPRO 09:11
PROVIDERS: ATTEND Nurse Practitioner
DX: R22.1 Localized swelling, mass and lump, neck (principal); Z85.3 Personal history of malignant neoplasm of breast; C79.89 Secondary malignant neoplasm of other specified sites

== ENCOUNTER → 2022-08-23 | Outpatient (CLI) | payer MEDICARE ==
[~2022-08-23] MED LIST changes: -LIDOCAINE 1% MDV 20ML VIAL As Ordered ONE; +MAGICMW SSP
== END ==
LOC: M ONCR 09:40
PROVIDERS: ATTEND General Practice
DX: C50.911 Malignant neoplasm of unspecified site of right female breast (principal); C79.51 Secondary malignant neoplasm of bone; Z79.890 Hormone replacement therapy; Z79.899 Other long term (current) drug therapy; Z88.0 Allergy status to penicillin; Z88.1 Allergy status to other antibiotic agents; Z88.5 Allergy status to narcotic agent; Z92.21 Personal history of antineoplastic chemotherapy; Z92.3 Personal history of irradiation

== ENCOUNTER → 2022-10-03 | Outpatient (CLI) | payer MEDICARE ==
[~2022-10-03] VITALS: Ht 160 cm; Wt 62.9 kg
[~2022-10-03] MED LIST changes: +CVS1CHW13 PO; +DEXA2TA PO; +NEBI5TAB PO
[2022-10-03 09:20] VITALS: BP 118/79
== END ==
LOC: M PAL 09:15
PROVIDERS: ATTEND Nurse Practitioner Adult Health
DX: C50.911 Malignant neoplasm of unspecified site of right female breast (principal); E05.00 Thyrotoxicosis with diffuse goiter without thyrotoxic crisis or storm; G89.3 Neoplasm related pain (acute) (chronic); G89.29 Other chronic pain; I10 Essential (primary) hypertension; M25.551 Pain in right hip; I48.91 Unspecified atrial fibrillation; M54.50 Low back pain, unspecified; R06.02 Shortness of breath; Z66 Do not resuscitate; Z79.899 Other long term (current) drug therapy; Z88.0 Allergy status to penicillin; Z88.1 Allergy status to other antibiotic agents; Z51.5 Encounter for palliative care; Z88.5 Allergy status to narcotic agent; Z80.49 Family history of malignant neoplasm of other genital organs; Z90.710 Acquired absence of both cervix and uterus; Z96.9 Presence of functional implant, unspecified; Z92.21 Personal history of antineoplastic chemotherapy; Z92.3 Personal history of irradiation

== ENCOUNTER → 2022-10-10 | Outpatient (CLI) | payer MEDICARE | LOC: M RAD 10:25 | PROVIDERS: ATTEND Internal Medicine Medical Oncology | DX: C50.911 Malignant neoplasm of unspecified site of right female breast (principal); R22.2 Localized swelling, mass and lump, trunk ==

== ENCOUNTER → 2022-10-10 | Outpatient (CLI) | payer MEDICARE ==
[2022-10-10 12:12] LABS: ALBUMIN 3.9 G/DL (3.2-5.2); ALKALINE PHOSPHATASE 65 U/L (46-116); ALT/SGPT 14 U/L (7.0-40); AST/SGOT 16 U/L (<34); BILIRUBIN,TOTAL 0.4 MG/DL (0.3-1.2); BLOOD UREA NITROGEN 20 MG/DL (9-23); CALCIUM LEVEL 9.4 MG/DL (8.3-10.6); CARBON DIOXIDE LEVEL 27 MMOL/L (20-31); CHLORIDE LEVEL 101 MMOL/L (98-107); CHOLESTEROL LEVEL 144 MG/DL (<200); CHOLESTEROL RISK RATIO 2.32 (<5); CREATININE FOR GFR 0.92 MG/DL (0.55-1.30); GLOMERULAR FILTRATION RATE > 60.0 (>45); GLUCOSE, FASTING 99 MG/DL (74-106); HDL CHOLESTEROL 61.9 MG/DL (>40); LDL CHOLESTEROL 43.5 MG/DL (<100); NON-HDL-C 82 MG/DL; SODIUM LEVEL 137 MMOL/L (136-145); TOTAL PROTEIN 6.8 G/DL (5.7-8.2); TRIGLYCERIDES LEVEL 193 MG/DL (<150)
== END ==
LOC: M LAB 10:22
PROVIDERS: ATTEND Physician Assistant
DX: E78.2 Mixed hyperlipidemia (principal); I47.20 Ventricular tachycardia, unspecified

== ENCOUNTER → 2022-11-04 | Outpatient (CLI) | payer MEDICARE | LOC: M PLARAD 12:34 | PROVIDERS: ATTEND Internal Medicine Medical Oncology | DX: C50.411 Malignant neoplasm of upper-outer quadrant of right female breast (principal) | CPT/HCPCS: 78815; A9552 ==

== ENCOUNTER → 2022-11-07 | Outpatient (CLI) | payer MEDICARE ==
[~2022-11-07] VITALS: Ht 160 cm; Wt 63.7 kg
[2022-11-07 07:52] VITALS: BP 130/84
== END ==
LOC: M PAL 07:47
PROVIDERS: ATTEND Nurse Practitioner Adult Health
DX: C50.911 Malignant neoplasm of unspecified site of right female breast (principal); G89.3 Neoplasm related pain (acute) (chronic); E05.00 Thyrotoxicosis with diffuse goiter without thyrotoxic crisis or storm; Z51.5 Encounter for palliative care; I48.91 Unspecified atrial fibrillation; Z66 Do not resuscitate; Z79.899 Other long term (current) drug therapy; Z88.0 Allergy status to penicillin; Z88.1 Allergy status to other antibiotic agents; Z88.5 Allergy status to narcotic agent; Z80.49 Family history of malignant neoplasm of other genital organs; Z90.710 Acquired absence of both cervix and uterus; Z92.21 Personal history of antineoplastic chemotherapy; Z92.3 Personal history of irradiation; Z96.9 Presence of functional implant, unspecified; R53.83 Other fatigue; R06.02 Shortness of breath; M25.551 Pain in right hip; I10 Essential (primary) hypertension; M54.50 Low back pain, unspecified; Z90.89 Acquired absence of other organs; Z98.51 Tubal ligation status

== ENCOUNTER → 2022-12-19 | Outpatient (CLI) | payer MEDICARE ==
[~2022-12-19] MED LIST changes: +FAMO20TA PO
== END ==
LOC: M PAL 07:44
PROVIDERS: ATTEND Nurse Practitioner Family
DX: C50.411 Malignant neoplasm of upper-outer quadrant of right female breast (principal); G89.3 Neoplasm related pain (acute) (chronic); E05.00 Thyrotoxicosis with diffuse goiter without thyrotoxic crisis or storm; I48.91 Unspecified atrial fibrillation; R19.7 Diarrhea, unspecified; Z51.5 Encounter for palliative care; Z79.899 Other long term (current) drug therapy; Z88.0 Allergy status to penicillin; Z88.1 Allergy status to other antibiotic agents; Z88.5 Allergy status to narcotic agent; Z80.49 Family history of malignant neoplasm of other genital organs; Z90.710 Acquired absence of both cervix and uterus; Z92.21 Personal history of antineoplastic chemotherapy; Z92.3 Personal history of irradiation; Z96.9 Presence of functional implant, unspecified; R53.83 Other fatigue; I10 Essential (primary) hypertension; M54.50 Low back pain, unspecified; Z90.89 Acquired absence of other organs; Z98.51 Tubal ligation status

== ENCOUNTER → 2023-02-06 | Outpatient (CLI) | payer MEDICARE ==
[~2023-02-06] MED LIST changes: +PROHANCE 279.3MG/ML 15ML VIAL As Ordered ONE
== END ==
LOC: M RAD 08:45
PROVIDERS: ATTEND Internal Medicine Medical Oncology
DX: C79.51 Secondary malignant neoplasm of bone (principal); C50.919 Malignant neoplasm of unspecified site of unspecified female breast; M51.36 Other intervertebral disc degeneration, lumbar region; M51.37 Other intervertebral disc degeneration, lumbosacral region
CPT/HCPCS: 72158; A9576

== ENCOUNTER → 2023-02-21 | Outpatient (CLI) | payer MEDICARE ==
[~2023-02-21] MED LIST changes: +PRED50TA PO; -PROHANCE 279.3MG/ML 15ML VIAL As Ordered ONE
== END ==
LOC: M ONCR 09:30
PROVIDERS: ATTEND General Practice
DX: C50.411 Malignant neoplasm of upper-outer quadrant of right female breast (principal); Z92.3 Personal history of irradiation; Z92.21 Personal history of antineoplastic chemotherapy; Z79.51 Long term (current) use of inhaled steroids; Z79.52 Long term (current) use of systemic steroids; Z79.890 Hormone replacement therapy; Z79.899 Other long term (current) drug therapy; Z88.0 Allergy status to penicillin; Z88.1 Allergy status to other antibiotic agents; Z88.5 Allergy status to narcotic agent

== ENCOUNTER → 2023-02-26 | Outpatient (CLI) | payer MEDICARE ==
[~2023-02-26] MED LIST changes: +PROHANCE 279.3MG/ML 15ML VIAL As Ordered ONE
== END ==
LOC: M RAD 13:45
PROVIDERS: ATTEND Internal Medicine Medical Oncology
DX: C50.919 Malignant neoplasm of unspecified site of unspecified female breast (principal); C79.51 Secondary malignant neoplasm of bone
CPT/HCPCS: 73723; A9576

== ENCOUNTER → 2023-03-20 | Outpatient (CLI) | payer MEDICARE ==
[~2023-03-20] MED LIST changes: +ENDO5TAB PO; -K-TA10TA2 PO; +POTA-165 PO; -PROHANCE 279.3MG/ML 15ML VIAL As Ordered ONE
== END ==
LOC: M WHC 07:00
PROVIDERS: ATTEND Internal Medicine Medical Oncology
DX: N63.11 Unspecified lump in the right breast, upper outer quadrant (principal); C50.411 Malignant neoplasm of upper-outer quadrant of right female breast; D48.7 Neoplasm of uncertain behavior of other specified sites

== ENCOUNTER → 2023-03-20 | Outpatient (CLI) | payer MEDICARE ==
[~2023-03-20] VITALS: Ht 157.5 cm; Wt 66.8 kg
[~2023-03-20] MED LIST changes: +K-TA10TA2 PO; -POTA-165 PO
[2023-03-20 09:22] VITALS: BP 112/77; TEMP 97.5; O2SAT 100
== END ==
LOC: M PAL 09:03
PROVIDERS: ATTEND Nurse Practitioner Adult Health
DX: C50.911 Malignant neoplasm of unspecified site of right female breast (principal); C79.89 Secondary malignant neoplasm of other specified sites; Z92.21 Personal history of antineoplastic chemotherapy; G89.3 Neoplasm related pain (acute) (chronic); Z79.891 Long term (current) use of opiate analgesic; Z51.5 Encounter for palliative care; R53.83 Other fatigue; Z66 Do not resuscitate; Z88.0 Allergy status to penicillin; Z88.1 Allergy status to other antibiotic agents; Z88.5 Allergy status to narcotic agent; Z90.710 Acquired absence of both cervix and uterus; Z98.51 Tubal ligation status; Z79.890 Hormone replacement therapy

== ENCOUNTER → 2023-04-02 | Outpatient (CLI) | payer MEDICARE ==
[~2023-04-02] MED LIST changes: -K-TA10TA2 PO; +POTA-165 PO
== END ==
LOC: M ONCR 13:27
PROVIDERS: ATTEND General Practice
DX: C50.411 Malignant neoplasm of upper-outer quadrant of right female breast (principal); C79.51 Secondary malignant neoplasm of bone; Z71.2 Person consulting for explanation of examination or test findings; Z79.52 Long term (current) use of systemic steroids; Z79.891 Long term (current) use of opiate analgesic; Z88.0 Allergy status to penicillin; Z88.1 Allergy status to other antibiotic agents; Z88.5 Allergy status to narcotic agent; Z90.11 Acquired absence of right breast and nipple; Z92.21 Personal history of antineoplastic chemotherapy; Z92.3 Personal history of irradiation; Z98.890 Other specified postprocedural states

== ENCOUNTER → 2023-05-12 | Outpatient (RCR) | payer MEDICARE ==
[~2023-05-12] MED LIST changes: -LIDO1CRE42 TOP; +LIDO30CR18 TOP
== END ==
LOC: M ONCR 04-22 10:08
PROVIDERS: ATTEND General Practice
DX: C50.411 Malignant neoplasm of upper-outer quadrant of right female breast (principal)

== ENCOUNTER 2023-06-01 20:32 | Emergency (ER) | payer MEDICARE ==
[~2023-06-01] VITALS: Ht 157.5 cm; Wt 65.9 kg
[2023-06-01 20:33] VITALS: TEMP 99
[2023-06-01 21:26] LABS: BASO % 0.2 % (0.0-1.0); EOS # 0.2 10^3/uL (0.0-0.5); EOS % 0.9 % (0.0-3.0); HEMATOCRIT 40.4 % (36.0-47.0); HEMOGLOBIN 13.3 g/dl (12.0-15.5); LYMPH # 1.1 10^3/uL (1.5-5.0); LYMPH % 6.7 % (24.0-44.0); MEAN CORPUSCULAR HEMOGLOBIN 33.8 pg (27.0-33.0); MEAN CORPUSCULAR HGB CONC 32.9 g/dl (32.0-36.5); MEAN CORPUSCULAR VOLUME 102.8 fl (80.0-96.0); MONO # 1.1 10^3/uL (0.0-0.8); MONO % 6.5 % (2.0-8.0); NEUTROPHILS # 14.5 10^3/uL (1.5-8.5); NEUTROPHILS % 85.3 % (36.0-66.0); PLATELET COUNT, AUTOMATED 181 10^3/uL (150-450); RED BLOOD COUNT 3.93 10^6/uL (4.00-5.40)
[2023-06-01 21:59] LABS: CALCIUM LEVEL 8.3 MG/DL (8.3-10.6); CREATININE FOR GFR 1.22 MG/DL (0.55-1.30); GLOMERULAR FILTRATION RATE 47.2 (>45); POTASSIUM SERUM 4.6 MMOL/L (3.5-5.1)
[2023-06-01 22:01] LABS: MB/CK RELATIVE INDEX 1.85 (< OR =4)
[2023-06-01] MEDS ORDERED: ISOVUE-370 76% 100ML VIAL As Ordered ONE (23:30)
[2023-06-02 00:05] LABS: CK-MB VALUE MASS 1.8 NG/ML (<3.6)
[2023-06-02 00:07] LABS: MB/CK RELATIVE INDEX 5.29 (< OR =4)
[2023-06-02 00:30] VITALS: BP 121/62
[2023-06-02 00:37] VITALS: O2SAT 95
[2023-06-02] MEDS ORDERED: HYDR-3713 PO ×2 (01:38→01:50)
[2023-06-02] MEDS ORDERED: NORCO 5/325MG TABLET (HOME DOSE PACK) PO ONE (01:40)
== END 2023-06-02 02:02 | disposition home or self-care (01) ==
LOC: M ED 20:32
DX: R53.81 Other malaise (principal); R00.0 Tachycardia, unspecified; I49.3 Ventricular premature depolarization; I10 Essential (primary) hypertension; G43.909 Migraine, unspecified, not intractable, without status migrainosus; F10.10 Alcohol abuse, uncomplicated; Z86.79 Personal history of other diseases of the circulatory system; Z88.0 Allergy status to penicillin; Z88.5 Allergy status to narcotic agent; Z88.1 Allergy status to other antibiotic agents; Z79.4 Long term (current) use of insulin; Z79.82 Long term (current) use of aspirin; Z79.899 Other long term (current) drug therapy
CPT/HCPCS: 36415; 71045; 71275; 74177; 80048; 81001; 82550; 82553; 84484; 85025; 87086; 87486; 87581; 87633; 87798; 93005; 99284; Q9967

== ENCOUNTER 2023-06-02 11:30 | Outpatient (RCR) | payer MEDICARE ==
[~2023-06-02 11:30] MED LIST changes: +HYDR-3713 PO
[2023-06-17] MEDS ORDERED: XELO1TAB PO (09:14)
== END 2023-06-12 ==
LOC: M ONCR 11:30
PROVIDERS: ATTEND General Practice
DX: Z51.0 Encounter for antineoplastic radiation therapy (principal); C79.51 Secondary malignant neoplasm of bone; C50.411 Malignant neoplasm of upper-outer quadrant of right female breast

== ENCOUNTER 2023-08-12 12:25 | Emergency (ER) | payer MEDICARE ==
[~2023-08-12] VITALS: Ht 157.5 cm; Wt 63.9 kg
[~2023-08-12 12:25] MED LIST changes: +FOLI0.4T5 PO
[2023-08-12] MEDS ORDERED: NS 1,000 ML IV ONE (12:45)
[2023-08-12 13:04] LABS: BASO % 0.3 % (0.0-1.0); EOS # 0.3 10^3/uL (0.0-0.5); EOS % 3.7 % (0.0-3.0); HEMATOCRIT 38.3 % (36.0-47.0); HEMOGLOBIN 13.2 g/dl (12.0-15.5); LYMPH # 1.5 10^3/uL (1.5-5.0); LYMPH % 17.2 % (24.0-44.0); MEAN CORPUSCULAR HEMOGLOBIN 35.3 pg (27.0-33.0); MEAN CORPUSCULAR HGB CONC 34.5 g/dl (32.0-36.5); MEAN CORPUSCULAR VOLUME 102.4 fl (80.0-96.0); MONO # 0.8 10^3/uL (0.0-0.8); NEUTROPHILS % 69.5 % (36.0-66.0); PLATELET COUNT, AUTOMATED 236 10^3/uL (150-450); RED BLOOD COUNT 3.74 10^6/uL (4.00-5.40); WHITE BLOOD COUNT 8.6 10^3/uL (4.0-10.0)
[2023-08-12 13:26] LABS: LIPASE 34 U/L (12-53)
[2023-08-12 13:28] LABS: ALBUMIN 4.4 G/DL (3.2-5.2); ALKALINE PHOSPHATASE 73 U/L (46-116); ALT/SGPT < 9 U/L (7.0-40); AST/SGOT 15 U/L (<34); BILIRUBIN,DIRECT 0.2 MG/DL (<0.4); BILIRUBIN,TOTAL 0.6 MG/DL (0.3-1.2); BLOOD UREA NITROGEN 14 MG/DL (9-23); CALCIUM LEVEL 9.5 MG/DL (8.3-10.6); CARBON DIOXIDE LEVEL 26 MMOL/L (20-31); CHLORIDE LEVEL 101 MMOL/L (98-107); CREATININE FOR GFR 0.99 MG/DL (0.55-1.30); GLOMERULAR FILTRATION RATE 59.9 (>45); GLUCOSE, FASTING 101 MG/DL (74-106); POTASSIUM SERUM 4.1 MMOL/L (3.5-5.1); SODIUM LEVEL 138 MMOL/L (136-145); TOTAL PROTEIN 7.7 G/DL (5.7-8.2)
[2023-08-12 15:54] VITALS: BP 120/62; TEMP 98.1; O2SAT 100
== END 2023-08-12 16:08 | disposition home or self-care (01) ==
LOC: M ED 12:25
DX: R19.7 Diarrhea, unspecified (principal); I10 Essential (primary) hypertension; M54.50 Low back pain, unspecified; E07.9 Disorder of thyroid, unspecified; K46.9 Unspecified abdominal hernia without obstruction or gangrene; Z86.79 Personal history of other diseases of the circulatory system; Z88.0 Allergy status to penicillin; Z88.5 Allergy status to narcotic agent; Z88.8 Allergy status to other drugs, medicaments and biological substances; Z79.4 Long term (current) use of insulin; Z79.52 Long term (current) use of systemic steroids; Z79.899 Other long term (current) drug therapy

== ENCOUNTER → 2023-08-21 | Outpatient (CLI) | payer MEDICARE ==
[~2023-08-21] VITALS: Ht 157.5 cm; Wt 65.1 kg
[~2023-08-21] MED LIST changes: +MORP15TA2 PO
[2023-08-21 13:05] VITALS: BP 137/84; O2SAT 98
== END ==
LOC: M PAL 12:46
PROVIDERS: ATTEND Nurse Practitioner Adult Health
DX: C50.911 Malignant neoplasm of unspecified site of right female breast (principal); C79.51 Secondary malignant neoplasm of bone; G89.3 Neoplasm related pain (acute) (chronic); R53.83 Other fatigue; Z51.5 Encounter for palliative care; Z66 Do not resuscitate; Z79.890 Hormone replacement therapy; Z79.891 Long term (current) use of opiate analgesic; Z79.899 Other long term (current) drug therapy; Z92.21 Personal history of antineoplastic chemotherapy; Z92.3 Personal history of irradiation; Z88.0 Allergy status to penicillin; Z88.1 Allergy status to other antibiotic agents; Z88.5 Allergy status to narcotic agent; Z90.710 Acquired absence of both cervix and uterus; Z98.51 Tubal ligation status

== ENCOUNTER → 2023-08-26 | Outpatient (CLI) | payer MEDICARE | LOC: M ONCR 09:52 | PROVIDERS: ATTEND General Practice | DX: C50.411 Malignant neoplasm of upper-outer quadrant of right female breast (principal); C79.51 Secondary malignant neoplasm of bone; G89.29 Other chronic pain; Z71.2 Person consulting for explanation of examination or test findings; Z79.890 Hormone replacement therapy; Z79.891 Long term (current) use of opiate analgesic; Z79.899 Other long term (current) drug therapy; Z88.0 Allergy status to penicillin; Z88.1 Allergy status to other antibiotic agents; Z88.5 Allergy status to narcotic agent; Z92.21 Personal history of antineoplastic chemotherapy; Z92.3 Personal history of irradiation ==

== ENCOUNTER → 2023-08-28 | Outpatient (CLI) | payer MEDICARE ==
[~2023-08-28] MED LIST changes: +GASTROGRAFIN SOLUTION 30ML As Ordered ONE; +ISOVUE-370 76% 100ML VIAL As Ordered ONE
== END ==
LOC: M RAD 08:41
PROVIDERS: ATTEND Internal Medicine Medical Oncology
DX: C50.919 Malignant neoplasm of unspecified site of unspecified female breast (principal)
CPT/HCPCS: 71260; 74177; Q9963; Q9967

== ENCOUNTER → 2023-09-06 | Outpatient (REF) | payer MEDICARE ==
[~2023-09-06] MED LIST changes: -GASTROGRAFIN SOLUTION 30ML As Ordered ONE; -ISOVUE-370 76% 100ML VIAL As Ordered ONE
== END ==
LOC: M LAB REF 16:11
PROVIDERS: ATTEND Internal Medicine Medical Oncology
DX: C50.911 Malignant neoplasm of unspecified site of right female breast (principal)

== ENCOUNTER → 2023-09-18 | Outpatient (CLI) | payer MEDICARE | LOC: M PAL 08:03 | PROVIDERS: ATTEND Nurse Practitioner Adult Health | DX: C50.919 Malignant neoplasm of unspecified site of unspecified female breast (principal); G89.3 Neoplasm related pain (acute) (chronic); R53.83 Other fatigue; Z51.5 Encounter for palliative care; Z66 Do not resuscitate; Z79.890 Hormone replacement therapy; Z79.891 Long term (current) use of opiate analgesic; Z79.899 Other long term (current) drug therapy; Z85.41 Personal history of malignant neoplasm of cervix uteri; Z92.21 Personal history of antineoplastic chemotherapy; Z92.3 Personal history of irradiation; Z88.0 Allergy status to penicillin; Z88.1 Allergy status to other antibiotic agents; Z88.5 Allergy status to narcotic agent; Z90.710 Acquired absence of both cervix and uterus; Z98.51 Tubal ligation status ==

== ENCOUNTER → 2023-11-19 | Outpatient (CLI) | payer MEDICARE ==
[~2023-11-19] VITALS: Ht 157.5 cm; Wt 63.0 kg
[~2023-11-19] MED LIST changes: +AZIT-12 PO
[2023-11-19 09:35] VITALS: BP 133/77; O2SAT 97
== END ==
LOC: M PAL 09:20
PROVIDERS: ATTEND Nurse Practitioner Adult Health
DX: G89.3 Neoplasm related pain (acute) (chronic) (principal); C79.51 Secondary malignant neoplasm of bone; I89.0 Lymphedema, not elsewhere classified; R53.83 Other fatigue; Z85.3 Personal history of malignant neoplasm of breast; Z51.5 Encounter for palliative care; Z66 Do not resuscitate; Z79.890 Hormone replacement therapy; Z79.891 Long term (current) use of opiate analgesic; Z79.899 Other long term (current) drug therapy; Z85.41 Personal history of malignant neoplasm of cervix uteri; Z88.0 Allergy status to penicillin; Z88.1 Allergy status to other antibiotic agents; Z88.5 Allergy status to narcotic agent; Z92.21 Personal history of antineoplastic chemotherapy; Z92.3 Personal history of irradiation; Z90.710 Acquired absence of both cervix and uterus

== ENCOUNTER → 2023-12-18 | Outpatient (CLI) | payer MEDICARE ==
[~2023-12-18] MED LIST changes: +GASTROGRAFIN SOLUTION 30ML As Ordered ONE; +ISOVUE-370 76% 100ML VIAL As Ordered ONE
== END ==
LOC: M RAD 11:20
PROVIDERS: ATTEND Internal Medicine Medical Oncology
DX: C50.919 Malignant neoplasm of unspecified site of unspecified female breast (principal)
CPT/HCPCS: 71260; 74177; Q9963; Q9967

== ENCOUNTER 2024-01-28 12:32 | Emergency (ER) | payer MEDICARE ==
[~2024-01-28] VITALS: Ht 157.5 cm; Wt 61.0 kg
[~2024-01-28 12:32] MED LIST changes: -GASTROGRAFIN SOLUTION 30ML As Ordered ONE; -ISOVUE-370 76% 100ML VIAL As Ordered ONE
[2024-01-28 14:00] LABS: BASO % 0.4 % (0.0-1.0); EOS # 0.2 10^3/uL (0.0-0.5); EOS % 1.8 % (0.0-3.0); HEMATOCRIT 39.3 % (36.0-47.0); HEMOGLOBIN 13.4 g/dl (12.0-15.5); LYMPH # 1.2 10^3/uL (1.5-5.0); LYMPH % 14.4 % (24.0-44.0); MEAN CORPUSCULAR HEMOGLOBIN 35.4 pg (27.0-33.0); MEAN CORPUSCULAR HGB CONC 34.1 g/dl (32.0-36.5); MEAN CORPUSCULAR VOLUME 103.7 fl (80.0-96.0); MONO # 0.6 10^3/uL (0.0-0.8); MONO % 7.2 % (2.0-8.0); NEUTROPHILS # 6.2 10^3/uL (1.5-8.5); NEUTROPHILS % 75.8 % (36.0-66.0); PLATELET COUNT, AUTOMATED 178 10^3/uL (150-450); RED BLOOD COUNT 3.79 10^6/uL (4.00-5.40); WHITE BLOOD COUNT 8.2 10^3/uL (4.0-10.0)
[2024-01-28 14:17] LABS: ERYTHROCYTE SEDIMENTATION RATE 12 mm/hr (0-30)
[2024-01-28 14:19] LABS: C REACTIVE PROTEIN QUANTITATIV 0.5 MG/DL (<1.0)
[2024-01-28 14:20] LABS: CALCIUM LEVEL 9.2 MG/DL (8.3-10.6); CREATININE FOR GFR 0.99 MG/DL (0.55-1.30); GLOMERULAR FILTRATION RATE 59.9 (>45); POTASSIUM SERUM 4.1 MMOL/L (3.5-5.1)
[2024-01-28] MEDS ORDERED: ASCO500T PO (14:41)
[2024-01-28] MEDS: fentaNYL 100 MCG/2 ML INJECTION IV ONE (15:39)
[2024-01-28] MEDS: ONDANSETRON 4MG 2ML VIAL IV ONE (15:39)
[2024-01-28 17:43] VITALS: BP 115/69; TEMP 97.8; O2SAT 96
[2024-01-29] MEDS ORDERED: PRED20TA PO (16:41)
== END 2024-01-28 17:43 | disposition home or self-care (01) ==
LOC: M ED 12:32
DX: R07.9 Chest pain, unspecified (principal); J45.909 Unspecified asthma, uncomplicated; Z92.21 Personal history of antineoplastic chemotherapy; Z85.3 Personal history of malignant neoplasm of breast; Z88.0 Allergy status to penicillin; Z88.8 Allergy status to other drugs, medicaments and biological substances; Z79.899 Other long term (current) drug therapy; Z79.52 Long term (current) use of systemic steroids
CPT/HCPCS: 71250; 80048; 85025; 85652; 86140; 87040; 96374; 99283; J2405; J3010

== ENCOUNTER → 2024-02-17 | Outpatient (CLI) | payer MEDICARE ==
[~2024-02-17] VITALS: Ht 157.5 cm; Wt 61.4 kg
[~2024-02-17] MED LIST changes: +ASCO500T PO; +DICL100G10 TOP; +ROSU5TAB40 PO; -ROSU5TAB5 PO
[2024-02-17 09:28] VITALS: BP 131/81; TEMP 98.6; O2SAT 98
== END ==
LOC: M PAL 09:22
PROVIDERS: ATTEND Nurse Practitioner Adult Health
DX: G89.3 Neoplasm related pain (acute) (chronic) (principal); R07.89 Other chest pain; C79.51 Secondary malignant neoplasm of bone; C50.911 Malignant neoplasm of unspecified site of right female breast; R60.0 Localized edema; R53.83 Other fatigue; Z85.41 Personal history of malignant neoplasm of cervix uteri; Z51.5 Encounter for palliative care; Z66 Do not resuscitate; Z79.890 Hormone replacement therapy; Z79.891 Long term (current) use of opiate analgesic; Z79.899 Other long term (current) drug therapy; Z88.0 Allergy status to penicillin; Z88.1 Allergy status to other antibiotic agents; Z88.5 Allergy status to narcotic agent; Z92.21 Personal history of antineoplastic chemotherapy; Z92.3 Personal history of irradiation; Z90.710 Acquired absence of both cervix and uterus

== ENCOUNTER → 2024-02-25 | Outpatient (CLI) | payer MEDICARE ==
[~2024-02-25] MED LIST changes: +DULO1CAP6 PO
== END ==
LOC: M ONCR 09:59
PROVIDERS: ATTEND General Practice
DX: C50.411 Malignant neoplasm of upper-outer quadrant of right female breast (principal); C79.51 Secondary malignant neoplasm of bone; I89.0 Lymphedema, not elsewhere classified; N64.4 Mastodynia; Z79.899 Other long term (current) drug therapy; Z85.3 Personal history of malignant neoplasm of breast; Z88.0 Allergy status to penicillin; Z88.1 Allergy status to other antibiotic agents; Z88.5 Allergy status to narcotic agent; Z92.21 Personal history of antineoplastic chemotherapy; Z92.3 Personal history of irradiation

== ENCOUNTER → 2024-03-10 | Outpatient (CLI) | payer MEDICARE | LOC: M RAD 09:25 | PROVIDERS: ATTEND Internal Medicine Medical Oncology | DX: C50.919 Malignant neoplasm of unspecified site of unspecified female breast (principal); R07.89 Other chest pain; C79.51 Secondary malignant neoplasm of bone | CPT/HCPCS: 78306; A9503 ==

== ENCOUNTER → 2024-03-18 | Outpatient (CLI) | payer MEDICARE ==
[~2024-03-18] VITALS: Ht 157.5 cm; Wt 60.0 kg
[2024-03-18 09:59] VITALS: BP 97/62; O2SAT 96
== END ==
LOC: M PAL 09:05
PROVIDERS: ATTEND Nurse Practitioner Adult Health
DX: G89.3 Neoplasm related pain (acute) (chronic) (principal); R07.89 Other chest pain; C79.51 Secondary malignant neoplasm of bone; C50.911 Malignant neoplasm of unspecified site of right female breast; R60.0 Localized edema; R53.83 Other fatigue; K59.00 Constipation, unspecified; Z85.41 Personal history of malignant neoplasm of cervix uteri; Z51.5 Encounter for palliative care; Z66 Do not resuscitate; Z79.890 Hormone replacement therapy; Z79.891 Long term (current) use of opiate analgesic; Z79.899 Other long term (current) drug therapy; Z88.0 Allergy status to penicillin; Z88.1 Allergy status to other antibiotic agents; Z88.5 Allergy status to narcotic agent; Z92.21 Personal history of antineoplastic chemotherapy; Z92.3 Personal history of irradiation; Z90.710 Acquired absence of both cervix and uterus; Z98.51 Tubal ligation status

== ENCOUNTER 2024-03-29 07:20 | Day surgery (SDC) | payer MEDICARE ==
[~2024-03-29] VITALS: Ht 157.5 cm; Wt 58.5 kg
[~2024-03-29 07:20] MED LIST changes: +LR 1,000 ML IV SCH
[2024-03-29] MEDS: TETRACAINE 0.5% OPHTH SOLN 4ML OS SCH (08:09)
[2024-03-29] MEDS: PHENYLEPHRINE 2.5% OPHTH SOL 2ML OS SCH (08:09)
[2024-03-29] MEDS: FLURBIPROFEN 0.03% OPHTH SOLN 2.5 ML OS SCH (08:09)
[2024-03-29] MEDS: ATROPINE SULFATE 1% OPHTH SOLN 2ML BTL OS SCH (08:09)
[2024-03-29] MEDS: MOXIFLOXACIN 0.6MG/0.4ML INTRAOCULAR SYRINGE As Ordered ONE (10:01)
[2024-03-29] MEDS: LIDOCAINE 1% SDV 5ML VIAL As Ordered ONE (10:01)
[2024-03-29] MEDS ORDERED: MIDAZOLAM INJ 2MG/2ML VIAL As Ordered ONE (10:10)
[2024-03-29] MEDS ORDERED: fentaNYL 100 MCG/2 ML INJECTION As Ordered ONE (10:10)
[2024-03-29 10:17] VITALS: BP 121/72; TEMP 98.9; O2SAT 97
== END 2024-03-29 10:45 | disposition home or self-care (01) ==
LOC: M SDC 07:20
PROVIDERS: ATTEND Ophthalmology
DX: H25.12 Age-related nuclear cataract, left eye (principal); I10 Essential (primary) hypertension; E03.9 Hypothyroidism, unspecified; E78.00 Pure hypercholesterolemia, unspecified; Z85.3 Personal history of malignant neoplasm of breast; Z79.899 Other long term (current) drug therapy; Z92.21 Personal history of antineoplastic chemotherapy; Z92.3 Personal history of irradiation; Z88.0 Allergy status to penicillin; Z88.5 Allergy status to narcotic agent; Z88.1 Allergy status to other antibiotic agents; Z88.8 Allergy status to other drugs, medicaments and biological substances; Z79.890 Hormone replacement therapy
CPT/HCPCS: 66984; J2250; J3010; V2632

== ENCOUNTER → 2024-03-31 | Outpatient (CLI) | payer MEDICARE ==
[~2024-03-31] MED LIST changes: -LR 1,000 ML IV SCH
== END ==
LOC: M WHC 13:04
PROVIDERS: ATTEND Internal Medicine Medical Oncology
DX: M81.0 Age-related osteoporosis without current pathological fracture (principal)

== ENCOUNTER 2024-04-20 12:01 | Emergency (ER) | payer MEDICARE ==
[~2024-04-20] VITALS: Ht 157.5 cm; Wt 57.6 kg
[2024-04-20] MEDS ORDERED: SODIUM CHLORIDE 0.9% INJ 10 ML SYR IV PRN (14:10)
[2024-04-20] MEDS: NS 1,000 ML IV ONE (14:35)
[2024-04-20] MEDS: dexAMETHasone 20MG/5ML VIAL IV ONE (14:35)
[2024-04-20] MEDS: IPRATROPIUM 0.5MG/ALBUTEROL 2.5MG INH SOL UD 3ML (DUONEB) NEB ONE (14:45)
[2024-04-20 15:13] LABS: BASO % 0.3 % (0.0-1.0); EOS # 0.1 10^3/uL (0.0-0.5); EOS % 0.6 % (0.0-3.0); HEMATOCRIT 37.1 % (36.0-47.0); HEMOGLOBIN 12.7 g/dl (12.0-15.5); LYMPH # 0.8 10^3/uL (1.5-5.0); LYMPH % 7.8 % (24.0-44.0); MEAN CORPUSCULAR HEMOGLOBIN 35.8 pg (27.0-33.0); MEAN CORPUSCULAR HGB CONC 34.2 g/dl (32.0-36.5); MEAN CORPUSCULAR VOLUME 104.5 fl (80.0-96.0); MONO # 0.7 10^3/uL (0.0-0.8); NEUTROPHILS # 8.5 10^3/uL (1.5-8.5); NEUTROPHILS % 83.9 % (36.0-66.0); PLATELET COUNT, AUTOMATED 200 10^3/uL (150-450); RED BLOOD COUNT 3.55 10^6/uL (4.00-5.40); WHITE BLOOD COUNT 10.2 10^3/uL (4.0-10.0)
[2024-04-20 15:55] LABS: ALBUMIN 4.3 G/DL (3.2-5.2); ALKALINE PHOSPHATASE 86 U/L (46-116); ALT/SGPT < 9 U/L (7.0-40); AST/SGOT 9 U/L (<34); BILIRUBIN,DIRECT 0.2 MG/DL (<0.4); BILIRUBIN,TOTAL 0.7 MG/DL (0.3-1.2); BLOOD UREA NITROGEN 10 MG/DL (9-23); CALCIUM LEVEL 9.1 MG/DL (8.3-10.6); CARBON DIOXIDE LEVEL 23 MMOL/L (20-31); CHLORIDE LEVEL 106 MMOL/L (98-107); CREATININE FOR GFR 0.81 MG/DL (0.55-1.30); GLOMERULAR FILTRATION RATE > 60.0 (>45); GLUCOSE, FASTING 87 MG/DL (74-106); SODIUM LEVEL 137 MMOL/L (136-145); TOTAL PROTEIN 7.5 G/DL (5.7-8.2)
[2024-04-20 15:57] LABS: THYROID STIMULATING HORMONE 0.174 uIU/ML (0.55-4.78); THYROXINE (T4) 13.8 UG/DL (4.5-10.9)
[2024-04-20] MEDS: ACETAMINOPHEN 325 MG TAB PO ONE (16:29)
[2024-04-20] MEDS ORDERED: ISOVUE-370 76% 100ML VIAL As Ordered ONE (18:00)
[2024-04-20 19:14] VITALS: BP 111/55; TEMP 97.4; O2SAT 95
== END 2024-04-20 19:15 | disposition home or self-care (01) ==
LOC: M ED 12:01
DX: R13.10 Dysphagia, unspecified (principal); H92.02 Otalgia, left ear; I10 Essential (primary) hypertension; G43.909 Migraine, unspecified, not intractable, without status migrainosus; E05.00 Thyrotoxicosis with diffuse goiter without thyrotoxic crisis or storm; E03.9 Hypothyroidism, unspecified; Z85.3 Personal history of malignant neoplasm of breast; Z88.0 Allergy status to penicillin; Z88.1 Allergy status to other antibiotic agents; Z88.5 Allergy status to narcotic agent; Z88.8 Allergy status to other drugs, medicaments and biological substances; Z79.899 Other long term (current) drug therapy; Z79.890 Hormone replacement therapy
CPT/HCPCS: 70491; 71045; 80048; 80076; 83605; 84436; 84443; 85025; 87040; 87486; 87581; 87633; 87798; 87880; 93005; 94640; 96361; 96374; 99284; J1100; Q9967

== ENCOUNTER → 2024-04-29 | Outpatient (CLI) | payer MEDICARE ==
[~2024-04-29] VITALS: Ht 157.5 cm; Wt 57.9 kg
[~2024-04-29] MED LIST changes: -NEBI5TAB PO; +NEBI5TAB2 PO
[2024-04-29 09:30] VITALS: BP 97/61; O2SAT 96
== END ==
LOC: M PAL 09:05
PROVIDERS: ATTEND Nurse Practitioner Adult Health
DX: J02.9 Acute pharyngitis, unspecified (principal); G89.3 Neoplasm related pain (acute) (chronic); C79.51 Secondary malignant neoplasm of bone; C50.911 Malignant neoplasm of unspecified site of right female breast; R53.83 Other fatigue; K59.00 Constipation, unspecified; Z85.41 Personal history of malignant neoplasm of cervix uteri; Z51.5 Encounter for palliative care; Z66 Do not resuscitate; Z79.890 Hormone replacement therapy; Z79.891 Long term (current) use of opiate analgesic; Z79.899 Other long term (current) drug therapy; Z88.0 Allergy status to penicillin; Z88.1 Allergy status to other antibiotic agents; Z88.5 Allergy status to narcotic agent; Z92.21 Personal history of antineoplastic chemotherapy; Z92.3 Personal history of irradiation; Z90.710 Acquired absence of both cervix and uterus; Z98.51 Tubal ligation status

== ENCOUNTER → 2024-05-27 | Outpatient (CLI) | payer MEDICARE | LOC: M ONCR 09:47 | PROVIDERS: ATTEND General Practice | DX: C79.51 Secondary malignant neoplasm of bone (principal); C50.411 Malignant neoplasm of upper-outer quadrant of right female breast; R60.0 Localized edema; Z90.11 Acquired absence of right breast and nipple; Z88.0 Allergy status to penicillin; Z88.1 Allergy status to other antibiotic agents; Z88.5 Allergy status to narcotic agent; Z79.620 Long term (current) use of immunosuppressive biologic; Z79.890 Hormone replacement therapy; Z79.899 Other long term (current) drug therapy; Z92.21 Personal history of antineoplastic chemotherapy; Z92.3 Personal history of irradiation ==

== ENCOUNTER 2024-05-31 11:40 | Day surgery (SDC) | payer MEDICARE ==
[~2024-05-31] VITALS: Ht 157.5 cm; Wt 58.2 kg
[~2024-05-31 11:40] MED LIST changes: +LR 1,000 ML IV SCH; +NEBI5TAB PO; -NEBI5TAB2 PO
[2024-05-31] MEDS: ATROPINE SULFATE 1% OPHTH SOLN 2ML BTL OD SCH (12:08)
[2024-05-31] MEDS: FLURBIPROFEN 0.03% OPHTH SOLN 2.5 ML OD SCH (12:08)
[2024-05-31] MEDS: PHENYLEPHRINE 2.5% OPHTH SOL 2ML OD SCH (12:08)
[2024-05-31] MEDS: TETRACAINE 0.5% OPHTH SOLN 4ML OD SCH (12:08)
[2024-05-31] MEDS ORDERED: MIDAZOLAM INJ 2MG/2ML VIAL As Ordered ONE (13:13)
[2024-05-31] MEDS ORDERED: fentaNYL 100 MCG/2 ML INJECTION As Ordered ONE (13:14)
[2024-05-31] MEDS: LIDOCAINE 1% SDV 5ML VIAL As Ordered ONE (13:56)
[2024-05-31] MEDS: MOXIFLOXACIN 0.6MG/0.4ML INTRAOCULAR SYRINGE As Ordered ONE (13:56)
[2024-05-31 14:12] VITALS: BP 111/72; TEMP 97.2; O2SAT 96
== END 2024-05-31 14:26 | disposition home or self-care (01) ==
LOC: M SDC 11:40
PROVIDERS: ATTEND Ophthalmology
DX: H25.11 Age-related nuclear cataract, right eye (principal); I10 Essential (primary) hypertension; E05.00 Thyrotoxicosis with diffuse goiter without thyrotoxic crisis or storm; I48.91 Unspecified atrial fibrillation; E78.00 Pure hypercholesterolemia, unspecified; Z79.899 Other long term (current) drug therapy; Z79.890 Hormone replacement therapy; Z85.3 Personal history of malignant neoplasm of breast; Z92.21 Personal history of antineoplastic chemotherapy; Z92.3 Personal history of irradiation; Z88.5 Allergy status to narcotic agent; Z88.0 Allergy status to penicillin; Z88.1 Allergy status to other antibiotic agents; Z90.89 Acquired absence of other organs
CPT/HCPCS: 66984; J2250; J3010; V2632

== ENCOUNTER → 2024-07-22 | Outpatient (CLI) | payer MEDICARE ==
[~2024-07-22] MED LIST changes: +BARIUM SULFATE 700 MG TABLET (E-Z-DISK) As Ordered ONE; +E-Z-PAQUE 96% w/w SUSP 176GM BTL As Ordered ONE; -LR 1,000 ML IV SCH; -NEBI5TAB PO; +NEBI5TAB2 PO; +VARIBAR NECTAR 40% w/v 240ML SUSP BTL As Ordered ONE; +VARIBAR PUDDING 40% w/v 230ML TUBE As Ordered ONE
== END ==
LOC: M RAD 10:52
PROVIDERS: ATTEND Otolaryngology
DX: R13.19 Other dysphagia (principal)

== ENCOUNTER → 2024-07-28 | Outpatient (CLI) | payer MEDICARE ==
[~2024-07-28] MED LIST changes: -BARIUM SULFATE 700 MG TABLET (E-Z-DISK) As Ordered ONE; -E-Z-PAQUE 96% w/w SUSP 176GM BTL As Ordered ONE; -VARIBAR NECTAR 40% w/v 240ML SUSP BTL As Ordered ONE; -VARIBAR PUDDING 40% w/v 230ML TUBE As Ordered ONE
[2024-07-28 15:52] LABS: BASO % 0.3 % (0.0-1.0); EOS # 0.1 10^3/uL (0.0-0.5); EOS % 1.7 % (0.0-3.0); HEMATOCRIT 35.6 % (36.0-47.0); HEMOGLOBIN 12.2 g/dl (12.0-15.5); LYMPH # 1.2 10^3/uL (1.5-5.0); LYMPH % 16.3 % (24.0-44.0); MEAN CORPUSCULAR HEMOGLOBIN 36.2 pg (27.0-33.0); MEAN CORPUSCULAR HGB CONC 34.3 g/dl (32.0-36.5); MEAN CORPUSCULAR VOLUME 105.6 fl (80.0-96.0); MONO # 0.7 10^3/uL (0.0-0.8); MONO % 8.9 % (2.0-8.0); NEUTROPHILS # 5.4 10^3/uL (1.5-8.5); NEUTROPHILS % 72.4 % (36.0-66.0); PLATELET COUNT, AUTOMATED 181 10^3/uL (150-450); RED BLOOD COUNT 3.37 10^6/uL (4.00-5.40); WHITE BLOOD COUNT 7.5 10^3/uL (4.0-10.0)
[2024-07-28 16:23] LABS: BLOOD UREA NITROGEN 10 MG/DL (9-23); CALCIUM LEVEL 9.5 MG/DL (8.3-10.6); CARBON DIOXIDE LEVEL 29 MMOL/L (20-31); CHLORIDE LEVEL 107 MMOL/L (98-107); CREATININE FOR GFR 0.88 MG/DL (0.55-1.30); GLOMERULAR FILTRATION RATE > 60.0 (>45); GLUCOSE, FASTING 144 MG/DL (74-106); SODIUM LEVEL 140 MMOL/L (136-145)
== END ==
LOC: M LAB 15:27
PROVIDERS: ATTEND Internal Medicine Cardiovascular Disease
DX: I50.9 Heart failure, unspecified (principal); I48.0 Paroxysmal atrial fibrillation

== ENCOUNTER → 2024-08-03 | Outpatient (CLI) | payer MEDICARE ==
[~2024-08-03] VITALS: Ht 157.5 cm; Wt 59.6 kg
[~2024-08-03] MED LIST changes: +PROA1AER2 INH
[2024-08-03 09:23] VITALS: BP 119/73; O2SAT 97
== END ==
LOC: M PAL 09:11
PROVIDERS: ATTEND Nurse Practitioner Adult Health
DX: G89.3 Neoplasm related pain (acute) (chronic) (principal); C79.51 Secondary malignant neoplasm of bone; C50.911 Malignant neoplasm of unspecified site of right female breast; R07.89 Other chest pain; R53.83 Other fatigue; K59.00 Constipation, unspecified; Z85.41 Personal history of malignant neoplasm of cervix uteri; Z51.5 Encounter for palliative care; Z66 Do not resuscitate; Z79.620 Long term (current) use of immunosuppressive biologic; Z79.890 Hormone replacement therapy; Z79.891 Long term (current) use of opiate analgesic; Z79.899 Other long term (current) drug therapy; Z88.0 Allergy status to penicillin; Z88.1 Allergy status to other antibiotic agents; Z88.8 Allergy status to other drugs, medicaments and biological substances; Z92.21 Personal history of antineoplastic chemotherapy; Z92.3 Personal history of irradiation; Z90.710 Acquired absence of both cervix and uterus; Z98.51 Tubal ligation status; Z90.49 Acquired absence of other specified parts of digestive tract

== ENCOUNTER → 2024-09-21 | Outpatient (CLI) | payer MEDICARE ==
[~2024-09-21] MED LIST changes: +ISOVUE-370 76% 100ML VIAL As Ordered ONE; -ROSU5TAB40 PO; +ROSU5TAB49 PO
== END ==
LOC: M RAD 15:54
PROVIDERS: ATTEND Internal Medicine Medical Oncology
DX: C50.919 Malignant neoplasm of unspecified site of unspecified female breast (principal)
CPT/HCPCS: 71260; 74177; Q9967

== ENCOUNTER → 2024-10-29 | Outpatient (CLI) | payer MEDICARE ==
[~2024-10-29] MED LIST changes: -ISOVUE-370 76% 100ML VIAL As Ordered ONE; +PROHANCE 279.3MG/ML 15ML VIAL ONE
== END ==
LOC: M PLAIMG 10:09
PROVIDERS: ATTEND Internal Medicine Medical Oncology
DX: C50.919 Malignant neoplasm of unspecified site of unspecified female breast (principal); R51.9 Headache, unspecified; R90.82 White matter disease, unspecified
CPT/HCPCS: 70553; A9576

== ENCOUNTER → 2024-11-03 | Outpatient (CLI) | payer MEDICARE ==
[~2024-11-03] VITALS: Ht 158.8 cm; Wt 60.5 kg
[~2024-11-03] MED LIST changes: +OXYC-517 PO; -PROHANCE 279.3MG/ML 15ML VIAL ONE
[2024-11-03 14:00] VITALS: BP 125/72; O2SAT 81
== END ==
LOC: M PAL 13:38
PROVIDERS: ATTEND Family Medicine
DX: Z51.5 Encounter for palliative care (principal); C50.919 Malignant neoplasm of unspecified site of unspecified female breast; C79.51 Secondary malignant neoplasm of bone; Z66 Do not resuscitate; R52 Pain, unspecified; Z79.620 Long term (current) use of immunosuppressive biologic; Z92.3 Personal history of irradiation; Z79.890 Hormone replacement therapy; Z79.899 Other long term (current) drug therapy; Z88.0 Allergy status to penicillin; Z88.1 Allergy status to other antibiotic agents; Z88.5 Allergy status to narcotic agent

== ENCOUNTER → 2024-11-30 | Outpatient (CLI) | payer MEDICARE ==
[~2024-11-30] MED LIST changes: +OXYC10TA12 PO
== END ==
LOC: M ONCR 09:49
PROVIDERS: ATTEND General Practice
DX: N60.31 Fibrosclerosis of right breast (principal); M79.2 Neuralgia and neuritis, unspecified; C79.51 Secondary malignant neoplasm of bone; C50.411 Malignant neoplasm of upper-outer quadrant of right female breast; Z92.21 Personal history of antineoplastic chemotherapy; Z98.890 Other specified postprocedural states; Z92.3 Personal history of irradiation; Z90.11 Acquired absence of right breast and nipple; Z88.0 Allergy status to penicillin; Z88.1 Allergy status to other antibiotic agents; Z88.5 Allergy status to narcotic agent; Z79.620 Long term (current) use of immunosuppressive biologic; Z79.899 Other long term (current) drug therapy; Z79.891 Long term (current) use of opiate analgesic

== ENCOUNTER → 2024-12-14 | Outpatient (CLI) | payer MEDICARE | LOC: M PLARAD 13:50 | PROVIDERS: ATTEND Nurse Practitioner Women's Health | DX: C50.811 Malignant neoplasm of overlapping sites of right female breast (principal) | CPT/HCPCS: 78815; A9552 ==

== ENCOUNTER 2025-01-06 09:50 | Outpatient (RCR) | payer MEDICARE ==
[~2025-01-06 09:50] MED LIST changes: +DENO60SY2; -PROL60SO
== END 2025-01-10 ==
LOC: M PT 09:50
PROVIDERS: ATTEND General Practice
DX: C50.411 Malignant neoplasm of upper-outer quadrant of right female breast (principal)

== ENCOUNTER 2025-01-13 09:44 | Outpatient (RCR) | payer MEDICARE ==
[~2025-01-13 09:44] MED LIST changes: -AMBI5TAB PO; -PRED50TA PO; +PRED50TA57 PO; +ZOLP-532 PO
[2025-02-01] MEDS ORDERED: PROC10TA5 PO (17:14)
[2025-02-01] MEDS ORDERED: ONDA-284 PO (17:14)
[2025-02-02] MEDS ORDERED: PROC10TA5 PO (12:16)
== END 2025-02-09 ==
LOC: M PT 09:44
PROVIDERS: ATTEND General Practice
DX: C50.411 Malignant neoplasm of upper-outer quadrant of right female breast (principal)

== ENCOUNTER → 2025-02-01 | Outpatient (CLI) | payer MEDICARE ==
[~2025-02-01] VITALS: Ht 157.5 cm; Wt 60.1 kg
[~2025-02-01] MED LIST changes: +AMBI5TAB PO; +ONDA-284 PO; +PRED50TA PO; -PRED50TA57 PO; -ZOLP-532 PO
[2025-02-01 13:29] VITALS: BP 120/67; O2SAT 96
== END ==
LOC: M PAL 12:46
PROVIDERS: ATTEND Physician Assistant
DX: Z51.5 Encounter for palliative care (principal); C50.919 Malignant neoplasm of unspecified site of unspecified female breast; C79.51 Secondary malignant neoplasm of bone; R52 Pain, unspecified; Z79.620 Long term (current) use of immunosuppressive biologic; Z79.890 Hormone replacement therapy; Z79.891 Long term (current) use of opiate analgesic; Z79.899 Other long term (current) drug therapy; Z66 Do not resuscitate; Z88.0 Allergy status to penicillin; Z88.1 Allergy status to other antibiotic agents; Z88.5 Allergy status to narcotic agent

== ENCOUNTER 2025-02-19 09:27 | Emergency (ER) | payer MEDICARE ==
[~2025-02-19] VITALS: Ht 157.5 cm; Wt 60.9 kg
[~2025-02-19 09:27] MED LIST changes: -AMBI5TAB PO; -PRED50TA PO; +PRED50TA57 PO; +ZOLP-532 PO
[2025-02-19] MEDS: CETIRIZINE (ZyrTEC) 10 MG TAB PO ONE (11:59)
[2025-02-19] MEDS: FAMOTIDINE 20 MG TAB PO ONE (11:59)
[2025-02-19 12:52] VITALS: BP 107/59; TEMP 98.1; O2SAT 97
== END 2025-02-19 13:13 | disposition home or self-care (01) ==
LOC: M ED 09:27
DX: R21 Rash and other nonspecific skin eruption (principal); T45.1X5A Adverse effect of antineoplastic and immunosuppressive drugs, initial encounter; I10 Essential (primary) hypertension; E78.5 Hyperlipidemia, unspecified; G43.909 Migraine, unspecified, not intractable, without status migrainosus; E55.9 Vitamin D deficiency, unspecified; E03.9 Hypothyroidism, unspecified; C50.911 Malignant neoplasm of unspecified site of right female breast; M54.50 Low back pain, unspecified; Z88.0 Allergy status to penicillin; Z88.5 Allergy status to narcotic agent; Z79.52 Long term (current) use of systemic steroids; Z79.899 Other long term (current) drug therapy; Z92.21 Personal history of antineoplastic chemotherapy

== ENCOUNTER 2025-04-21 23:18 | Emergency (ER) | payer MEDICARE ==
[~2025-04-21] VITALS: Ht 157.5 cm; Wt 59.1 kg
[~2025-04-21 23:18] MED LIST changes: +BUDE10.7 IH
[2025-04-21 23:21] VITALS: TEMP 97.1
[2025-04-22 03:00] VITALS: BP 133/70
[2025-04-22 03:33] VITALS: O2SAT 90
[2025-04-22] MEDS ORDERED: PRED10TA2 PO (03:40)
[2025-04-22] MEDS: predniSONE 20 MG TAB PO ONE (03:43)
[2025-04-22 03:51] LABS: BASO # 0.0 10^3/uL (0.0-0.2); BASO % 0.0 % (0.0-1.0); EOS # 0.0 10^3/uL (0.0-0.5); EOS % 0.0 % (0.0-3.0); LYMPH # 0.5 10^3/uL (1.5-5.0); LYMPH % 16.4 % (24.0-44.0); MONO # 0.1 10^3/uL (0.0-0.8); MONO % 2.2 % (2.0-8.0); NEUTROPHILS # 2.6 10^3/uL (1.5-8.5); NEUTROPHILS % 80.5 % (36.0-66.0); PLATELET COUNT, AUTOMATED 166 10^3/uL (150-450)
[2025-04-22 03:55] LABS: ERYTHROCYTE SEDIMENTATION RATE 17 mm/hr (0-30)
[2025-04-22 04:32] LABS: ALT/SGPT 15.0 U/L (7.0-40); AST/SGOT 17.0 U/L (<34); CALCIUM LEVEL 7.8 MG/DL (8.3-10.6); CARBON DIOXIDE LEVEL 24.0 MMOL/L (20-31); CHLORIDE LEVEL 108.0 MMOL/L (98-107); CREATININE FOR GFR 0.84 MG/DL (0.55-1.30); GLOMERULAR FILTRATION RATE 76.6 (>45); POTASSIUM SERUM 4.8 MMOL/L (3.5-5.1); SODIUM LEVEL 144.0 MMOL/L (136-145)
== END 2025-04-22 04:27 | disposition home or self-care (01) ==
LOC: M ED 23:18
DX: I77.6 Arteritis, unspecified (principal); C50.911 Malignant neoplasm of unspecified site of right female breast; Z92.21 Personal history of antineoplastic chemotherapy; Z79.52 Long term (current) use of systemic steroids; Z79.83 Long term (current) use of bisphosphonates; Z79.899 Other long term (current) drug therapy; Z88.0 Allergy status to penicillin; Z88.5 Allergy status to narcotic agent; Z88.8 Allergy status to other drugs, medicaments and biological substances
CPT/HCPCS: 36415; 80053; 85025; 85652; 96366; 96367; 96368; 96375; 96413; 96415; 99284; G0463; J0461; J1100; J1200; J1308; J1453; J1642; J2469; J3475; J7512; J9317

== ENCOUNTER → 2025-05-03 | Outpatient (CLI) | payer MEDICARE ==
[~2025-05-03] VITALS: Ht 157.5 cm; Wt 58.0 kg
[2025-05-03 13:12] VITALS: BP 113/64; O2SAT 98
== END ==
LOC: M PAL 12:37
PROVIDERS: ATTEND Physician Assistant
DX: Z51.5 Encounter for palliative care (principal); Z66 Do not resuscitate; C50.911 Malignant neoplasm of unspecified site of right female breast; C79.51 Secondary malignant neoplasm of bone; C79.81 Secondary malignant neoplasm of breast; Z92.21 Personal history of antineoplastic chemotherapy; Z92.3 Personal history of irradiation; Z79.891 Long term (current) use of opiate analgesic; Z88.0 Allergy status to penicillin; Z88.1 Allergy status to other antibiotic agents; Z88.5 Allergy status to narcotic agent; Z79.899 Other long term (current) drug therapy; Z79.02 Long term (current) use of antithrombotics/antiplatelets

== ENCOUNTER 2025-05-26 12:16 | Emergency (ER) | payer MEDICARE ==
[~2025-05-26] VITALS: Ht 157.5 cm; Wt 55.8 kg
[2025-05-26 14:02] LABS: BASO # 0.0 10^3/uL (0.0-0.2); BASO % 0.8 % (0.0-1.0); EOS # 0.1 10^3/uL (0.0-0.5); EOS % 4.3 % (0.0-3.0); LYMPH # 0.7 10^3/uL (1.5-5.0); LYMPH % 26.5 % (24.0-44.0); MONO # 0.5 10^3/uL (0.0-0.8); MONO % 17.5 % (2.0-8.0); NEUTROPHILS # 1.3 10^3/uL (1.5-8.5); NEUTROPHILS % 50.1 % (36.0-66.0); PLATELET COUNT, AUTOMATED 241 10^3/uL (150-450)
[2025-05-26 14:38] LABS: ALT/SGPT 19.0 U/L (7.0-40); AST/SGOT 19.0 U/L (<34); MAGNESIUM LEVEL 1.8 MG/DL (1.8-2.4)
[2025-05-26 17:03] LABS: KETONE, URINE AUTO RFX NEGATIVE (NEGATIVE); MUCUS, URINE RFX LARGE (NEGATIVE); NITRITE, URINE AUTO RFX NEGATIVE (NEGATIVE); RBC, URINE AUTO RFX 0 /HPF (0-3); SQUAM EPITHELIAL CELL UR AURFX 8 /HPF (0-6); WBC, URINE AUTO RFX 0 /HPF (0-3)
[2025-05-26 17:07] LABS: LEUKOCYTE ESTERASE UR AUTO RFX TRACE (NEGATIVE)
[2025-05-26] MEDS: NS (Normal Saline) 0.9% 1,000 ML IV ONE ×2 (17:41→18:35)
[2025-05-26] MEDS: AZITHROMYCIN 250 MG TABLET PO ONE (19:29)
[2025-05-26 20:51] VITALS: BP 118/63; TEMP 98.2; O2SAT 98
[2025-06-01] MEDS ORDERED: IBRA75CA PO (16:17)
[2025-06-02] MEDS ORDERED: CIPR500S PO (09:03)
== END 2025-05-26 20:59 | disposition home or self-care (01) ==
LOC: M ED 12:16
DX: A04.4 Other intestinal Escherichia coli infections (principal); R19.7 Diarrhea, unspecified; I48.91 Unspecified atrial fibrillation; C50.919 Malignant neoplasm of unspecified site of unspecified female breast; Z88.0 Allergy status to penicillin; Z88.5 Allergy status to narcotic agent; Z88.1 Allergy status to other antibiotic agents; Z79.899 Other long term (current) drug therapy

== ENCOUNTER 2025-06-18 19:35 | Emergency (ER) | payer MEDICARE ==
[~2025-06-18] VITALS: Ht 157.5 cm; Wt 57.0 kg
[~2025-06-18 19:35] MED LIST changes: +CIPR500S PO; -FOLI0.4T5 PO; +FOLI400T2 PO; +IBRA75CA PO
[2025-06-18 19:43] VITALS: TEMP 97.9
[2025-06-18 20:57] LABS: VENOUS BASE EXCESS 0.0 (-2.0-2.0); VENOUS HCO3 25.2 MMOL/L (23.0-27.0); VENOUS O2 SATURATION 85.5 % (60.0-80.0); VENOUS PARTIAL PRESSURE CO2 43.2 mmHg (38.0-50.0); VENOUS PARTIAL PRESSURE O2 54.2 mmHg (30.0-50.0); VENOUS PH 7.383 UNITS (7.330-7.430); VENOUS STANDARD HCO3 24.3 MMOL/L; VENOUS TOTAL CO2 26.5 MMOL/L (24.0-28.0)
[2025-06-18 21:00] LABS: BASO # 0.0 10^3/uL (0.0-0.2); BASO % 0.3 % (0.0-1.0); EOS # 0.4 10^3/uL (0.0-0.5); EOS % 12.6 % (0.0-3.0); LYMPH # 0.7 10^3/uL (1.5-5.0); LYMPH % 21.4 % (24.0-44.0); MONO # 0.4 10^3/uL (0.0-0.8); MONO % 13.6 % (2.0-8.0); NEUTROPHILS # 1.6 10^3/uL (1.5-8.5); NEUTROPHILS % 51.5 % (36.0-66.0); PLATELET COUNT, AUTOMATED 240 10^3/uL (150-450)
[2025-06-18 21:27] LABS: FREE T4 1.43 NG/DL (0.89-1.76)
[2025-06-18 21:39] LABS: ALT/SGPT 22 U/L (7.0-40); AST/SGOT 34 U/L (<34); CALCIUM LEVEL 9.0 MG/DL (8.3-10.6); CARBON DIOXIDE LEVEL 26 MMOL/L (20-31); CHLORIDE LEVEL 106 MMOL/L (98-107); CREATININE FOR GFR 0.96 MG/DL (0.55-1.30); GLOMERULAR FILTRATION RATE 64.9 (>45); POTASSIUM SERUM 4.1 MMOL/L (3.5-5.1); SODIUM LEVEL 144 MMOL/L (136-145)
[2025-06-18] MEDS ORDERED: ISOVUE-370 76% 100 ML VIAL As Ordered ONE (21:48)
[2025-06-18 23:11] LABS: MAGNESIUM LEVEL 1.5 MG/DL (1.8-2.4)
[2025-06-18 23:12] LABS: CK-MB VALUE MASS < 1.0 NG/ML (<3.6)
[2025-06-18 23:13] LABS: CPK CREATINE PHOSPHOKINASE 62 U/L (34-145)
[2025-06-18 23:25] LABS: CK-MB VALUE MASS 1.4 NG/ML (<3.6); CPK CREATINE PHOSPHOKINASE 94 U/L (34-145); MB/CK RELATIVE INDEX 1.48 (< OR =4)
[2025-06-18] MEDS: MAG SULF 1GM/100ML (MAG RUN) 1 GM in IV 1 EA IV ONE (23:42)
[2025-06-19] MEDS: MAG SULF 1GM/100ML (MAG RUN) 1 GM in IV 1 EA IV ONE (00:41)
[2025-06-19 02:00] VITALS: BP 109/64; O2SAT 98
== END 2025-06-19 02:18 | disposition home or self-care (01) ==
LOC: M ED 19:35
DX: R06.02 Shortness of breath (principal); E83.42 Hypomagnesemia; C50.919 Malignant neoplasm of unspecified site of unspecified female breast; R00.0 Tachycardia, unspecified; G43.909 Migraine, unspecified, not intractable, without status migrainosus; I10 Essential (primary) hypertension; F10.10 Alcohol abuse, uncomplicated; Z86.79 Personal history of other diseases of the circulatory system; Z90.89 Acquired absence of other organs; Z88.0 Allergy status to penicillin; Z88.5 Allergy status to narcotic agent; Z88.8 Allergy status to other drugs, medicaments and biological substances; Z79.899 Other long term (current) drug therapy; Z79.83 Long term (current) use of bisphosphonates
CPT/HCPCS: 71045; 71275; 80048; 80076; 82550; 82553; 82803; 83605; 83735; 84439; 84443; 84484; 85025; 87040; 87486; 87581; 87633; 87798; 93005; 93041; 94760; 96365; 96366; 99285; J3475; Q9967

== ENCOUNTER 2025-07-14 09:44 | Outpatient (RCR) | payer MEDICARE ==
[~2025-07-14 09:44] MED LIST changes: +CAPE500T23 PO; -XELO1TAB PO
[2025-08-10] MEDS ORDERED: GABA-1171 PO (11:09)
[2025-08-10] MEDS ORDERED: DULO1CAP6 PO ×2 (11:09→11:10)
== END 2025-08-12 ==
LOC: M PT 09:44
PROVIDERS: ATTEND General Practice
DX: C50.411 Malignant neoplasm of upper-outer quadrant of right female breast (principal)

== ENCOUNTER → 2025-09-01 | Outpatient (CLI) | payer MEDICARE ==
[~2025-09-01] VITALS: Ht 160 cm; Wt 56.8 kg
[2025-09-01 13:07] VITALS: BP 134/64; O2SAT 96
== END ==
LOC: M PAL 12:49
PROVIDERS: ATTEND Physician Assistant
DX: Z51.5 Encounter for palliative care (principal); Z66 Do not resuscitate; C50.919 Malignant neoplasm of unspecified site of unspecified female breast; C79.89 Secondary malignant neoplasm of other specified sites; C79.51 Secondary malignant neoplasm of bone; Z92.3 Personal history of irradiation; Z92.21 Personal history of antineoplastic chemotherapy; Z79.891 Long term (current) use of opiate analgesic; Z88.5 Allergy status to narcotic agent; Z88.0 Allergy status to penicillin; Z88.1 Allergy status to other antibiotic agents; Z79.899 Other long term (current) drug therapy; Z79.02 Long term (current) use of antithrombotics/antiplatelets